=== PATIENT | male | born 1960 | race African-American/Black ===

== ENCOUNTER 2017-04-04 11:43 | Inpatient (IN) | payer OTHER ==
[2017-04-04 17:46] VITALS: BMI 19.5
--- NOTE | 2017-04-04 18:36 | HP ---
CIWA Score - CIWA Score Nausea/Vomitin-Mild Nausea/No Vomiting Muscle Tremors: 4-Moderate,w/Arms Extend Anxiety: 4-Mod. Anxious/Guarded Agitation: 4-Moderately Restless Paroxysmal Sweats: 1-Minimal Palms Moist Orientation: 3-Disoriented Date>2 days Tacttile Disturbances: 0-None Auditory Disturbances: 0-None Visual Disturbances: 0-None Headache: 0-None Present CIWA-Ar Total Score: 17 Admission ROS S - HPI Chief Complaint: WITHDRAWAL SX Allergies/Adverse Reactions: Allergies Allergy/AdvReac Type Severity Reaction Status Date / Time No Known Allergies Allergy Verified 03/17/16 13:32 History of Present Illness: 57 YEARS OLD MALE WITH LONG HISTORY OF ALCOHOL NICOTINE DEPENDENCE HAS HYPERLIPIDEMIA AND RASHES AND SCHIZOPHRENIA IS ADMITTED TO DETOX Exam Limitations: No Limitations - Ebola screening Have you traveled outside of the country in the last 21 days: No Have you had contact with anyone from an Ebola affected area: No Have you been sick,other than usual withdrawal symptoms: No Do you have a fever: No - Review of Systems Constitutional: Chills, Loss of Appetite, Changes in sleep, Unintentional Wgt. Loss, Unexplained wgt Loss EENT: reports: No Symptoms Reported Respiratory: reports: No Symptoms reported Cardiac: reports: No Symptoms Reported GI: reports: Nausea, Poor Appetite, Poor Fluid Intake, Abdominal cramping : reports: No Symptoms Reported Musculoskeletal: reports: No Symptoms Reported Integumentary: reports: Rash (TREATED AT SELLS DISCHARGED WITH ANTIBIOTIC) Neuro: reports: Tremors Endocrine: reports: No Symptoms Reported Hematology: reports: No Symptoms Reported Psychiatric: reports: Judgement Intact, Mood/Affect Appropiate, Anxious, Depressed Other Systems: Reviewed and Negative Patient History - Patient Medical History Hx Anemia: No Hx Asthma: No Hx Chronic Obstructive Pulmonary Disease (COPD): No Hx Cancer: No Hx Cardiac Disorders: No Hx Congestive Heart Failure: No Hx Hypertension: No Hx Hypercholesterolemia: No Hx Pacemaker: No HX Cerebrovascular Accident: No Hx Seizures: No Hx Dementia: No Hx Diabetes: No Hx Gastrointestinal Disorders: No Hx Liver Disease: No Hx Genitourinary Disorders: No Hx Sexually Transmitted Disorders: No Hx Renal Disease (ESRD): No Hx Thyroid Disease: No Hx Human Immunodeficiency Virus (HIV): No Hx Hepatitis C: No Hx Depression: No Hx Suicide Attempt: No Hx Bipolar Disorder: No Hx Schizophrenia: Yes - Patient Surgical History Past Surgical History: Yes Hx Neurologic Surgery: No Hx Cataract Extraction: No Hx Cardiac Surgery: No Hx Lung Surgery: No Hx Breast Surgery: No Hx Breast Biopsy: No Hx Abdominal Surgery: No Hx Appendectomy: No Hx Cholecystectomy: No Hx Genitourinary Surgery: No Hx Orthopedic Surgery: No Other Surgical History: KELOID RIGHT FACE Anesthesia Reaction: No - PPD History Previous Implant?: Yes Documented Results: Negative w/o proof Implanted On Prior [facility] Admission?: Yes Date: 03/19/16 Results: 0 mm PPD to be Administered?: Yes - Smoking Cessation Smoking history: Current every day smoker Have you smoked in the past 12 months: Yes Aproximately how many cigarettes per day: 2 Cigars Per Day: 0 Hx Chewing Tobacco Use: No Initiated information on smoking cessation: Yes 'Breaking Loose' booklet given: 04/04/17 - Substance & Tx. History Hx Alcohol Use: Yes Hx Substance Use: No Substance Use Type: Alcohol Hx Substance Use Treatment: Yes - Substances Abused Alcohol Route: Oral Frequency: Daily Amount used: Beer 32oz X5 Age of first use: 31 Date of Last Use: 04/04/17 Family Disease History - Family Disease History Family Disease History: Other: Father, Mother () Admission Physical Exam S - Vital Signs Vital Signs: Vital Signs - 24 hr 04/04/17 17:39 Temperature 96.1 F L Pulse Rate 92 H Respiratory 20 Rate Blood Pressure 158/94 - Physical General Appearance: Yes: Appropriately Dressed, Moderate Distress, Alcohol on Breath, Thin, Tremorous, Irritable, Sweating, Anxious HEENTM: Yes: Hearing grossly Normal, Normal ENT Inspection, Normocephalic, Normal Voice Respiratory: Yes: Chest Non-Tender, Lungs Clear, Normal Breath Sounds, No Respiratory Distress, No Accessory Muscle Use Neck: Yes: Supple, Trachea in good position Breast: Yes: Breasts Symetrical Cardiology: Yes: Regular Rhythm, S1, S2, Tachycardia Abdominal: Yes: Non Tender, Soft Genitourinary: Yes: Within Normal Limits Back: Yes: Normal Inspection Musculoskeletal: Yes: full range of Motion, Gait Steady Extremities: Yes: Normal Range of Motion, Non-Tender, Tremors, Other (RASHES TREATED AT SELLS) Neurological: Yes: Alert, Motor Strength 5/5, Normal Response, Depressed Affect Integumentary: Yes: Warm Lymphatic: Yes: Within Normal Limits - Diagnostic (1) Alcohol dependence with uncomplicated withdrawal Current Visit: Yes Status: Acute (2) Nicotine dependence Current Visit: Yes Status: Acute Qualifiers: Nicotine product type: cigarettes Substance use status: in withdrawal Qualified Code(s): F17.213 - Nicotine dependence, cigarettes, with withdrawal (3) Weight loss Current Visit: Yes Status: Acute (4) Schizotypal personality disorder Current Visit: Yes Status: Suspected (5) Acneiform rash Current Visit: Yes Status: Acute Comment: TREATED AT SELLS ORAL ANTIBIOTIC CORTISON CREAM Cleared for Admission [facility] - Detox or Rehab [facility] Level of Care: Medically Managed Detox Regimen/Protocol: Librium [facility] Breath Alcohol Content Breath Alcohol Content: 0.248 Urine Drug Screen - Results Drug Screen Negative: Yes
[2017-04-04] MEDS ORDERED: MAG HYDROX/AL HYDROX/SIMETH 30 ML UNIT-DOSE CUP PO PRN (19:13)
[2017-04-04] MEDS ORDERED: MAGNESIUM HYDROX 2400MG/30ML ORAL SUSPENSION 30 ML CUP PO PRN (19:13)
[2017-04-04] MEDS ORDERED: P-EPHED 60MG/TRIPROLIDI 2.5MG TABLET PO PRN (19:13)
[2017-04-04] MEDS ORDERED: guaiFENesin/D-METHORPHAN HB 10 ML UNIT-DOSE CUPS PO PRN (19:13)
[2017-04-04] MEDS ORDERED: chlordiazePOXIDE HCL 25 MG CAPSULE PO ONE (19:13)
[2017-04-04] MEDS ORDERED: hydrOXYzine PAMOATE 50 MG CAPSULE (FP) PO PRN (19:13)
[2017-04-04] MEDS ORDERED: LOPERAMIDE HCL 2 MG CAPSULE PO PRN (19:13)
[2017-04-04] MEDS ORDERED: NICOTINE POLACRILEX 2 MG GUM BUC PRN (19:13)
[2017-04-04] MEDS ORDERED: chlordiazePOXIDE HCL 25 MG CAPSULE PO PRN (19:13)
[2017-04-04] MEDS ORDERED: MENTHOL/PHENOL 1 EACH UD MM PRN (19:13)
[2017-04-04] MEDS ORDERED: IBUPROFEN 400 MG TABLET (FP) PO PRN (19:13)
[2017-04-04] MEDS ORDERED: ACETAMINOPHEN 325 MG TABLET (FP) PO PRN (19:13)
[2017-04-04] MEDS ORDERED: MAGNESIUM CITRATE 300 ML BOTTLE PO PRN (19:13)
[2017-04-04] MEDS: THIAMINE HCL 100 MG TABLET (FP) PO SCH (22:28)
[2017-04-04] MEDS: chlordiazePOXIDE HCL 25 MG CAPSULE PO SCH (22:29)
[2017-04-04] MEDS: CLOTRIMAZOLE 1% CREAM 15 GM TUBE TP SCH (22:29)
[2017-04-04] MEDS: diphenhydrAMINE HCL 50 MG CAPSULE PO PRN (22:30)
[2017-04-04] MEDS: CEPHALEXIN 250 MG/5 ML ORAL SUSPENSION PO SCH ×2 (22:51→23:43)
[2017-04-05] MEDS: chlordiazePOXIDE HCL 25 MG CAPSULE PO SCH ×4 (05:46→22:17)
[2017-04-05] MEDS: CEPHALEXIN MONOHYDRATE 250 MG CAPSULE (FP) PO SCH ×4 (05:46→23:22)
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
[2017-04-05 09:55] LABS: MCH 30.2 pg (25.7-33.7); MCHC 32.8 g/dl (32.0-35.9); MEAN PLT VOLUME 7.6 fl (7.5-11.1); PLATELET COUNT 279 K/MM3 (134-434); RDW 17.3 % (11.9-15.9); WHITE BLOOD COUNT 6.3 K/mm3 (4.0-10.0)
[2017-04-05] MEDS: PRENATAL VITAMINS W/ FOLIC ACID TABLET (FP) PO SCH (10:11)
[2017-04-05] MEDS: predniSONE 20 MG TABLET (UD) PO SCH (10:11)
[2017-04-05] MEDS: NICOTINE 14 MG/24 HOURS TOPICAL PATCH TD SCH (10:12)
[2017-04-05] MEDS ORDERED: HALOPERIDOL 1 MG TABLET (FP) PO PRN (10:27)
[2017-04-05 10:28] LABS: ALBUMIN 3.9 g/dl (3.4-5.0); ALK PHOS 114 U/L (45-117); ANION GAP 10 (8-16); BILIRUBIN,TOTAL 0.8 mg/dL (0.2-1.0); CALCIUM 8.9 mg/dL (8.5-10.1); CO2 29 mmol/L (21-32); CREATININE 0.8 mg/dL (0.7-1.3); GLUCOSE,RANDOM 102 mg/dL (74-106); SGOT/AST 39 U/L (15-37); SGPT/ALT 32 U/L (12-78); TOT PROT 7.2 g/dl (6.4-8.2)
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
[2017-04-05] MEDS: CLOTRIMAZOLE 1% CREAM 15 GM TUBE TP SCH ×2 (11:02→22:56)
[2017-04-05] MEDS ORDERED: PNEUMOC 13-VAL CONJ-DIP CRM/PF 0.5 ML DISP.SYRIN IM ONE (12:00)
[2017-04-05] MEDS ORDERED: PNEUMOCOCCAL 23 VACCINE 0.5 ML VIAL IM ONE (12:00)
--- NOTE | 2017-04-05 13:11 | EKG ---
Test Reason : Blood Pressure : / mmHG Vent. Rate : 074 BPM Atrial Rate : 074 BPM P-R Int : 166 ms QRS Dur : 086 ms QT Int : 372 ms P-R-T Axes : 081 085 072 degrees QTc Int : 412 ms NORMAL SINUS RHYTHM POSSIBLE LEFT ATRIAL ENLARGEMENT BORDERLINE ECG NO PREVIOUS ECGS AVAILABLE Confirmed by DOROTHEA JACKSON, CHIDI ([id number]) on 04/05/2017 1:11:13 PM Referred By: Confirmed By:CHIDI PIEDRA MD
[2017-04-05] MEDS: diphenhydrAMINE HCL 50 MG CAPSULE PO PRN (22:17)
[2017-04-05] MEDS: THIAMINE HCL 100 MG TABLET (FP) PO SCH (22:17)
[2017-04-05] MEDS: CEPHALEXIN 250 MG/5 ML ORAL SUSPENSION PO SCH (23:24)
[2017-04-06] MEDS: chlordiazePOXIDE HCL 25 MG CAPSULE PO SCH ×2 (05:48→10:18)
[2017-04-06] MEDS: CEPHALEXIN 250 MG/5 ML ORAL SUSPENSION PO SCH (05:49)
--- NOTE | 2017-04-06 09:53 | PN ---
[facility] CIWA - CIWA Score Nausea/Vomitin-No Nausea/No Vomiting Muscle Tremors: 4-Moderate,w/Arms Extend Anxiety: 5 Agitation: 3 Paroxysmal Sweats: 2 Orientation: 0-Oriented Tacttile Disturbances: 0-None Auditory Disturbances: 0-None Visual Disturbances: 0-None Headache: 0-None Present CIWA-Ar Total Score: 14 S Progress Note (SOAP) Subjective: ANXIETY,SWEATS,FATIGUE, SLIGHT TREMORS. Objective: 04/06/17 09:52 Vital Signs Temperature 97 F L 04/06/17 09:29 Pulse Rate 92 H 04/06/17 09:29 Respiratory Rate 20 04/06/17 09:29 Blood Pressure 143/96 04/06/17 09:29 O2 Sat by Pulse Oximetry (%) Laboratory Last Values WBC 6.3 K/mm3 (4.0-10.0) 04/05/17 06:00 RBC 4.94 M/mm3 (4.00-5.60) 04/05/17 06:00 Hgb 14.9 GM/dL (11.7-16.9) D 04/05/17 06:00 Hct 45.5 % (35.4-49) 04/05/17 06:00 MCV 92.0 fl (80-96) 04/05/17 06:00 MCHC 32.8 g/dl (32.0-35.9) 04/05/17 06:00 RDW 17.3 % (11.9-15.9) H D 04/05/17 06:00 Plt Count 279 K/MM3 (134-434) 04/05/17 06:00 MPV 7.6 fl (7.5-11.1) 04/05/17 06:00 Sodium 142 mmol/L (136-145) 04/05/17 06:00 Potassium 4.2 mmol/L (3.5-5.1) 04/05/17 06:00 Chloride 103 mmol/L (98-107) 04/05/17 06:00 Carbon Dioxide 29 mmol/L (21-32) 04/05/17 06:00 Anion Gap 10 (8-16) 04/05/17 06:00 BUN 18 mg/dL (7-18) 04/05/17 06:00 Creatinine 0.8 mg/dL (0.7-1.3) 04/05/17 06:00 Creat Clearance w eGFR > 60 (>60) 04/05/17 06:00 Random Glucose 102 mg/dL (74-106) D 04/05/17 06:00 Calcium 8.9 mg/dL (8.5-10.1) 04/05/17 06:00 Total Bilirubin 0.8 mg/dL (0.2-1.0) D 04/05/17 06:00 AST 39 U/L (15-37) H D 04/05/17 06:00 ALT 32 U/L (12-78) D 04/05/17 06:00 Alkaline Phosphatase 114 U/L (45-117) D 04/05/17 06:00 Total Protein 7.2 g/dl (6.4-8.2) D 04/05/17 06:00 Albumin 3.9 g/dl (3.4-5.0) 04/05/17 06:00 RPR Titer Nonreactive (NONREACTIVE) 04/05/17 06:00 Assessment: 04/06/17 09:52 WITHDRAWAL SX Plan: CONTINUE DETOX
[2017-04-06] MEDS: PRENATAL VITAMINS W/ FOLIC ACID TABLET (FP) PO SCH (10:18)
[2017-04-06] MEDS: CLOTRIMAZOLE 1% CREAM 15 GM TUBE TP SCH (10:18)
[2017-04-06] MEDS: predniSONE 20 MG TABLET (UD) PO SCH (10:18)
[2017-04-06] MEDS: NICOTINE 14 MG/24 HOURS TOPICAL PATCH TD SCH (10:18)
[2017-04-06 10:23] LABS: URINE APPEARANCE CLEAR; URINE BILIRUBIN NEGATIVE (NEGATIVE); URINE BLOOD NEGATIVE (NEGATIVE); URINE COLOR LTYELLOW; URINE GLUCOSE (UA) NEGATIVE (NEGATIVE); URINE KETONE NEGATIVE (NEGATIVE); URINE NITRITE NEGATIVE (NEGATIVE); URINE PROTEIN NEGATIVE (NEGATIVE); URINE UROBILINOGEN NEGATIVE E.U./dl (0.2-1.0)
[2017-04-06 10:48] LABS: URINE LEUK ESTERASE 1+ (NEGATIVE)
[2017-04-06 11:10] LABS: CALCIUM OXALATE CRYSTALS RARE /hpf (NONE SEEN); URINE MUCUS RARE; URINE RBC <1 /hpf (0-3); URINE WBC 9 /hpf (3-5)
[2017-04-06 13:33] VITALS: BP 136/95; PULSE 76; TEMP 96.3
--- NOTE | 2017-04-06 14:39 | DS ---
[facility] Detox Discharge Summary Admission Date: 04/04/17 Discharge Date: 04/06/17 - History Present History: Alcohol Dependence Additional Comments: PT DECLINED TO CONTINUE WITH DETOX FOR PERSONAL REASONS STATING TO HIS NURSE HE IS GOING TO ANOTHER FACILITY-[facility]. Pertinent Past History: SCHIZOPHRENIA - Physical Exam Results Vital Signs: Vital Signs Temperature 96.3 F L 04/06/17 13:32 Pulse Rate 76 04/06/17 13:32 Respiratory Rate 18 04/06/17 13:32 Blood Pressure 136/95 04/06/17 13:32 O2 Sat by Pulse Oximetry (%) Pertinent Admission Physical Exam Findings: WITHDRAWAL SX Laboratory Last Values WBC 6.3 K/mm3 (4.0-10.0) 04/05/17 06:00 RBC 4.94 M/mm3 (4.00-5.60) 04/05/17 06:00 Hgb 14.9 GM/dL (11.7-16.9) D 04/05/17 06:00 Hct 45.5 % (35.4-49) 04/05/17 06:00 MCV 92.0 fl (80-96) 04/05/17 06:00 MCHC 32.8 g/dl (32.0-35.9) 04/05/17 06:00 RDW 17.3 % (11.9-15.9) H D 04/05/17 06:00 Plt Count 279 K/MM3 (134-434) 04/05/17 06:00 MPV 7.6 fl (7.5-11.1) 04/05/17 06:00 Sodium 142 mmol/L (136-145) 04/05/17 06:00 Potassium 4.2 mmol/L (3.5-5.1) 04/05/17 06:00 Chloride 103 mmol/L (98-107) 04/05/17 06:00 Carbon Dioxide 29 mmol/L (21-32) 04/05/17 06:00 Anion Gap 10 (8-16) 04/05/17 06:00 BUN 18 mg/dL (7-18) 04/05/17 06:00 Creatinine 0.8 mg/dL (0.7-1.3) 04/05/17 06:00 Creat Clearance w eGFR > 60 (>60) 04/05/17 06:00 Random Glucose 102 mg/dL (74-106) D 04/05/17 06:00 Calcium 8.9 mg/dL (8.5-10.1) 04/05/17 06:00 Total Bilirubin 0.8 mg/dL (0.2-1.0) D 04/05/17 06:00 AST 39 U/L (15-37) H D 04/05/17 06:00 ALT 32 U/L (12-78) D 04/05/17 06:00 Alkaline Phosphatase 114 U/L (45-117) D 04/05/17 06:00 Total Protein 7.2 g/dl (6.4-8.2) D 04/05/17 06:00 Albumin 3.9 g/dl (3.4-5.0) 04/05/17 06:00 Urine Color Ltyellow 04/06/17 08:08 Urine Appearance Clear 04/06/17 08:08 Urine pH 6.0 (5.0-8.0) 04/06/17 08:08 Urine Protein Negative (NEGATIVE) 04/06/17 08:08 Urine Glucose (UA) Negative (NEGATIVE) 04/06/17 08:08 Urine Ketones Negative (NEGATIVE) 04/06/17 08:08 Urine Blood Negative (NEGATIVE) 04/06/17 08:08 Urine Nitrite Negative (NEGATIVE) 04/06/17 08:08 Urine Bilirubin Negative (NEGATIVE) 04/06/17 08:08 Urine Urobilinogen Negative E.U./dl (0.2-1.0) 04/06/17 08:08 Ur Leukocyte Esterase 1+ (NEGATIVE) H 04/06/17 08:08 Urine RBC <1 /hpf (0-3) 04/06/17 08:08 Urine WBC 9 /hpf (3-5) 04/06/17 08:08 Calcium Oxalate Crystal Rare /hpf (NONE SEEN) 04/06/17 08:08 Urine Mucus Rare 04/06/17 08:08 RPR Titer Nonreactive (NONREACTIVE) 04/05/17 06:00 - Treatment Hospital Course: Discharged Condition Good - Medication Discharge Medications: Ambulatory Orders Ondansetron HCl 4 mg PO TID MDD 3 10/24/16 - Diagnosis (1) Acneiform rash Status: Acute (2) Alcohol dependence with uncomplicated withdrawal Status: Acute (3) Nicotine dependence Status: Acute Qualifiers: Nicotine product type: cigarettes Substance use status: in withdrawal Qualified Code(s): F17.213 - Nicotine dependence, cigarettes, with withdrawal (4) Weight loss Status: Acute (5) Schizoaffective disorder Status: Suspected (6) Schizotypal personality disorder Status: Suspected - AMA Did Patient Leave Against Medical Advice: Yes (AMA)
[2017-04-06] MEDS ORDERED: chlordiazePOXIDE 5 MG CAPSULE PO SCH (23:00)
[2017-04-07] MEDS ORDERED: chlordiazePOXIDE HCL 10 MG CAPSULE PO SCH (23:00)
== END 2017-04-06 12:55 | disposition left against medical advice (07) | DRG 770 ==
LOC: YASAS 11:43 → Y3N 17:56
PROVIDERS: ADMIT Internal Medicine; ATTEND Internal Medicine
PROC: HZ2ZZZZ Detoxification Services for Substance Abuse Treatment (ICD-10-PCS; principal; 2017-04-04)
DX: F10.230 Alcohol dependence with withdrawal, uncomplicated (principal); F17.213 Nicotine dependence, cigarettes, with withdrawal; F25.9 Schizoaffective disorder, unspecified; F41.8 Other specified anxiety disorders; F22 Delusional disorders; F21 Schizotypal disorder; F60.0 Paranoid personality disorder; L27.0 Generalized skin eruption due to drugs and medicaments taken internally; R00.0 Tachycardia, unspecified; E78.5 Hyperlipidemia, unspecified; Z87.898 Personal history of other specified conditions
CPT/HCPCS: 36415; 80053; 81003; 81015; 85027; 86593; 90732; 93005; 93010; G0009

== ENCOUNTER 2017-12-24 08:41 | Inpatient (IN) | payer OTHER ==
[2017-12-24 10:27] VITALS: BMI 18.7
--- NOTE | 2017-12-24 11:34 | HP ---
CIWA Score - CIWA Score Nausea/Vomitin-Mild Nausea/No Vomiting Muscle Tremors: 4-Moderate,w/Arms Extend Anxiety: 3 Agitation: 3 Paroxysmal Sweats: 3 Orientation: 0-Oriented Tacttile Disturbances: 0-None Auditory Disturbances: 0-None Visual Disturbances: 0-None Headache: 0-None Present CIWA-Ar Total Score: 14 Admission ROS BHS - HPI Chief Complaint: I cant stop drinking alcohol. Allergies/Adverse Reactions: Allergies Allergy/AdvReac Type Severity Reaction Status Date / Time No Known Allergies Allergy Verified 12/24/17 11:02 History of Present Illness: pt is a 57yr old male with a history of alcohol dependence seeking detox for treatment. Exam Limitations: No Limitations - Ebola screening Have you traveled outside of the country in the last 21 days: No (N) Have you had contact with anyone from an Ebola affected area: No Have you been sick,other than usual withdrawal symptoms: No Do you have a fever: No - Review of Systems Constitutional: Chills, Changes in sleep EENT: reports: No Symptoms Reported Respiratory: reports: Cough Cardiac: reports: No Symptoms Reported GI: reports: Diarrhea, Poor Appetite, Poor Fluid Intake : reports: No Symptoms Reported Musculoskeletal: reports: Joint Pain, Other (left hip pain d/t arthritis) Integumentary: reports: Dryness, Flushing, Rash, Sweating Neuro: reports: Tingling, Tremors Endocrine: reports: Excessive Sweating, Flushing, Intolerance to Cold, Intolerance to Heat Hematology: reports: No Symptoms Reported Psychiatric: reports: Judgement Intact, Orientated x3, Agitated, Anxious, Depressed Other Systems: Reviewed and Negative Patient History - Patient Medical History Hx Anemia: No Hx Asthma: No Hx Chronic Obstructive Pulmonary Disease (COPD): No Hx Cancer: No Hx Cardiac Disorders: No Hx Congestive Heart Failure: No Hx Hypertension: No Hx Hypercholesterolemia: No Hx Pacemaker: No HX Cerebrovascular Accident: No Hx Seizures: No Hx Dementia: No Hx Diabetes: No Hx Gastrointestinal Disorders: No Hx Liver Disease: No Hx Genitourinary Disorders: No Hx Sexually Transmitted Disorders: No Hx Renal Disease (ESRD): No Hx Thyroid Disease: No Hx Human Immunodeficiency Virus (HIV): No (negative) Hx Hepatitis C: No (negative ) Hx Depression: No Hx Suicide Attempt: No (denies) Hx Bipolar Disorder: No Hx Schizophrenia: No - Patient Surgical History Past Surgical History: Yes Hx Neurologic Surgery: No Hx Cataract Extraction: No Hx Cardiac Surgery: No Hx Lung Surgery: No Hx Breast Surgery: No Hx Breast Biopsy: No Hx Abdominal Surgery: No Hx Appendectomy: No Hx Cholecystectomy: No Hx Genitourinary Surgery: No Hx Section: No Hx Orthopedic Surgery: No Other Surgical History: KELOID RIGHT FACE Anesthesia Reaction: No - PPD History Previous Implant?: Yes Documented Results: Negative w/proof Implanted On Prior [facility] Admission?: Yes Date: 04/06/17 Results: 0 mm PPD to be Administered?: No - Reproductive History Patient is a Female of Child Bearing Age (11 -55 yrs old): No - Smoking Cessation Smoking history: Former smoker Have you smoked in the past 12 months: No Aproximately how many cigarettes per day: 2 If you are a former smoker, when did you quit?: 2017 Cigars Per Day: 0 Hx Chewing Tobacco Use: No Initiated information on smoking cessation: No 'Breaking Loose' booklet given: 12/24/17 - Substance & Tx. History Hx Alcohol Use: Yes Hx Substance Use: No Substance Use Type: Alcohol Hx Substance Use Treatment: Yes (last detox [facility] 2months ago) - Substances Abused Alcohol Route: Oral Frequency: Daily Amount used: vodka(3 pints)/cobra(4-5 cans) Age of first use: 22 Date of Last Use: 12/24/17 Family Disease History - Family Disease History Family Disease History: Other: Father, Mother () Admission Physical Exam BHS - Vital Signs Vital Signs: Vital Signs - 24 hr 12/24/17 10:22 Temperature 97.0 F L Pulse Rate 86 Respiratory 18 Rate Blood Pressure 146/86 - Physical General Appearance: Yes: Appropriately Dressed, Moderate Distress, Severe Distress, Tremorous, Irritable, Sweating, Anxious HEENTM: Yes: Hearing grossly Normal, Normocephalic, Normal Voice, Pharynx Normal Respiratory: Yes: Lungs Clear, Normal Breath Sounds, No Respiratory Distress Neck: Yes: No masses,lesions,Nodules Breast: Yes: Within Normal Limits Cardiology: Yes: Within Normal Limits, Regular Rhythm, Regular Rate, S1, S2 Abdominal: Yes: Normal Bowel Sounds, Non Tender, Soft Genitourinary: Yes: Within Normal Limits Back: Yes: Normal Inspection Musculoskeletal: Yes: Back pain, Joint Stiffness Extremities: Yes: Normal Capillary Refill, Normal Inspection, Non-Tender, Tremors Neurological: Yes: Fully Oriented, Alert, Normal Response Integumentary: Yes: Dry Lymphatic: Yes: Within Normal Limits - Diagnostic (1) Alcohol dependence with uncomplicated withdrawal Current Visit: Yes Status: Chronic (2) Nicotine dependence Current Visit: Yes Status: Chronic Qualifiers: Nicotine product type: cigarettes Substance use status: uncomplicated Qualified Code(s): F17.210 - Nicotine dependence, cigarettes, uncomplicated (3) Acneiform rash Current Visit: Yes Status: Chronic (4) Cocaine abuse Current Visit: No Status: Acute (5) Schizoaffective disorder Current Visit: No Status: Suspected Cleared for Admission [facility] - Detox or Rehab [facility] Level of Care: Medically Managed Detox Regimen/Protocol: Librium [facility] Breath Alcohol Content Breath Alcohol Content: 196 Urine Drug Screen - Results Drug Screen Negative: No Urine Drug Screen Results: BZO-Benzodiazepines
[2017-12-24] MEDS ORDERED: LOPERAMIDE HCL 2 MG CAPSULE PO PRN (11:39)
[2017-12-24] MEDS ORDERED: MENTHOL/PHENOL 1 EACH UD MM PRN (11:39)
[2017-12-24] MEDS ORDERED: MAGNESIUM HYDROX 2400MG/30ML ORAL SUSPENSION 30 ML CUP PO PRN (11:39)
[2017-12-24] MEDS ORDERED: P-EPHED 60MG/TRIPROLIDI 2.5MG TABLET PO PRN (11:39)
[2017-12-24] MEDS ORDERED: MAG HYDROX/AL HYDROX/SIMETH 30 ML UNIT-DOSE CUP PO PRN (11:39)
[2017-12-24] MEDS ORDERED: ACETAMINOPHEN 325 MG TABLET (FP) PO PRN (11:39)
[2017-12-24] MEDS ORDERED: chlordiazePOXIDE HCL 25 MG CAPSULE PO PRN (11:39)
[2017-12-24] MEDS ORDERED: MAGNESIUM CITRATE 300 ML BOTTLE PO PRN (11:39)
[2017-12-24] MEDS ORDERED: chlordiazePOXIDE HCL 25 MG CAPSULE PO ONE (11:45)
[2017-12-24] MEDS: FLUOCINONIDE 0.05% CREAM (15 GM TUBE) TP SCH ×3 (15:34→22:10)
[2017-12-24 17:13] LABS: URINE APPEARANCE CLEAR; URINE BILIRUBIN NEGATIVE (NEGATIVE); URINE BLOOD NEGATIVE (NEGATIVE); URINE COLOR LTYELLOW; URINE GLUCOSE (UA) NEGATIVE (NEGATIVE); URINE KETONE NEGATIVE (NEGATIVE); URINE LEUK ESTERASE NEGATIVE (NEGATIVE); URINE NITRITE NEGATIVE (NEGATIVE); URINE PROTEIN NEGATIVE (NEGATIVE)
[2017-12-24] MEDS: chlordiazePOXIDE HCL 25 MG CAPSULE PO SCH ×2 (17:29→22:11)
[2017-12-24] MEDS: THIAMINE HCL 100 MG TABLET (FP) PO SCH (22:11)
[2017-12-24] MEDS: hydrOXYzine PAMOATE 50 MG CAPSULE (FP) PO PRN (22:12)
[2017-12-25] MEDS: chlordiazePOXIDE HCL 25 MG CAPSULE PO SCH ×4 (05:19→22:26)
[2017-12-25] MEDS ORDERED: PERMETHRIN 5% TOPICAL CREAM 60 GM TUBE TP ONE (09:13)
--- NOTE | 2017-12-25 09:29 | PN ---
[facility] CIWA - CIWA Score Nausea/Vomitin-No Nausea/No Vomiting Muscle Tremors: 4-Moderate,w/Arms Extend Anxiety: 4-Mod. Anxious/Guarded Agitation: 4-Moderately Restless Paroxysmal Sweats: 1-Minimal Palms Moist Orientation: 0-Oriented Tacttile Disturbances: 3-Moderate Itch/Numb/Burn Auditory Disturbances: 0-None Visual Disturbances: 0-None Headache: 0-None Present CIWA-Ar Total Score: 16 [facility] Progress Note (SOAP) Subjective: ANXIETY,SWEATS,IRRITABILITY,RESTLESS, IRRITABILITY,INTERMITTENT SLEEP. PT REPORTS LONG STANDING SKIN LESIONS WHICH HE HAS BEEN SEEING A APPLIANCE TECHNICIAN FOR TREATMENT. IN ADDITION, PT C/O OF UNRELENTING ITCHING AND SCRATCHING WHICH HE STATES HE MIGHT HAVE SCABIES. ASKED PT IF HE THINKS HE HAS BEEN RECENTLY EXPOSED AND PT SAYS YES AND DEMANDS TREATMENT. ON REVIEW OF PT'S HOME PHARMACY MEDS, PT WAS TREATED WITH PERMETHRIN 5% CREAM IN September,. PT STATES WAS GIVEN IVERMECTIN 3 MG TAB,RX DATE 12/14/17( INSTRUCTED TO TAKE 4 TABS ONE DOSE ON DAY ONE AND THEN 4 TABS ON DAY 8). PT IS NON COMPLIANT WITH TREATMENT AND REPORTS NOT STABLE AT A LOCATION. Objective: 12/25/17 11:22 Vital Signs Temperature 95.5 F L 12/25/17 09:47 Pulse Rate 87 12/25/17 09:47 Respiratory Rate 20 12/25/17 09:47 Blood Pressure 143/96 12/25/17 09:47 O2 Sat by Pulse Oximetry (%) Laboratory Last Values WBC 5.7 K/mm3 (4.0-10.0) 12/25/17 05:45 RBC 4.47 M/mm3 (4.00-5.60) 12/25/17 05:45 Hgb 13.8 GM/dL (11.7-16.9) 12/25/17 05:45 Hct 42.2 % (35.4-49) 12/25/17 05:45 MCV 94.5 fl (80-96) 12/25/17 05:45 MCH 30.9 pg (25.7-33.7) 12/25/17 05:45 MCHC 32.7 g/dl (32.0-35.9) 12/25/17 05:45 RDW 15.8 % (11.9-15.9) 12/25/17 05:45 Plt Count 263 K/MM3 (134-434) 12/25/17 05:45 MPV 7.8 fl (7.5-11.1) 12/25/17 05:45 Sodium 140 mmol/L (136-145) 12/25/17 05:45 Potassium 4.0 mmol/L (3.5-5.1) 12/25/17 05:45 Chloride 102 mmol/L (98-107) 12/25/17 05:45 Carbon Dioxide 30 mmol/L (21-32) 12/25/17 05:45 Anion Gap 8 (8-16) 12/25/17 05:45 BUN 17 mg/dL (7-18) 12/25/17 05:45 Creatinine 0.8 mg/dL (0.7-1.3) 12/25/17 05:45 Creat Clearance w eGFR > 60 (>60) 12/25/17 05:45 Random Glucose 65 mg/dL (74-106) L D 12/25/17 05:45 Calcium 8.8 mg/dL (8.5-10.1) 12/25/17 05:45 Total Bilirubin 0.5 mg/dL (0.2-1.0) D 12/25/17 05:45 AST 35 U/L (15-37) 12/25/17 05:45 ALT 30 U/L (12-78) 12/25/17 05:45 Alkaline Phosphatase 126 U/L (45-117) H 12/25/17 05:45 Total Protein 7.1 g/dl (6.4-8.2) 12/25/17 05:45 Albumin 3.8 g/dl (3.4-5.0) 12/25/17 05:45 Urine Color Ltyellow 12/24/17 15:00 Urine Appearance Clear 12/24/17 15:00 Urine pH 7.0 (5.0-8.0) 12/24/17 15:00 Ur Specific [place] 1.020 (1.001-1.035) 12/24/17 15:00 Urine Protein Negative (NEGATIVE) 12/24/17 15:00 Urine Glucose (UA) Negative (NEGATIVE) 12/24/17 15:00 Urine Ketones Negative (NEGATIVE) 12/24/17 15:00 Urine Blood Negative (NEGATIVE) 12/24/17 15:00 Urine Nitrite Negative (NEGATIVE) 12/24/17 15:00 Urine Bilirubin Negative (NEGATIVE) 12/24/17 15:00 Urine Urobilinogen 2.0 mg/dL (0.2-1.0) 12/24/17 15:00 Ur Leukocyte Esterase Negative (NEGATIVE) 12/24/17 15:00 Assessment: 12/25/17 11:22 WITHDRAWAL SX SCABIES Plan: CONTINUE DETOX PERMETHRIN 5% CREAM APPLY HEAD TO TOE TOPICALLY AND LEAVE FOR 8 HRS THEN WASH OFF.
[2017-12-25 09:50] LABS: HEMATOCRIT 42.2 % (35.4-49); HEMOGLOBIN 13.8 GM/dL (11.7-16.9); MCH 30.9 pg (25.7-33.7); MCHC 32.7 g/dl (32.0-35.9); MEAN CELL VOLUME 94.5 fl (80-96); MEAN PLT VOLUME 7.8 fl (7.5-11.1); PLATELET COUNT 263 K/MM3 (134-434); RBC 4.47 M/mm3 (4.00-5.60); RDW 15.8 % (11.9-15.9); WHITE BLOOD COUNT 5.7 K/mm3 (4.0-10.0)
[2017-12-25 10:42] LABS: CHLORIDE 102 mmol/L (98-107); SODIUM 140 mmol/L (136-145)
[2017-12-25] MEDS: FLUOCINONIDE 0.05% CREAM (15 GM TUBE) TP SCH ×4 (10:57→22:27)
[2017-12-25] MEDS: PRENATAL VITAMINS W/ FOLIC ACID TABLET (FP) PO SCH (10:57)
[2017-12-25 11:00] LABS: ALBUMIN 3.8 g/dl (3.4-5.0); ALK PHOS 126 U/L (45-117); ANION GAP 8 (8-16); BILIRUBIN,TOTAL 0.5 mg/dL (0.2-1.0); BLOOD UREA NITROGEN 17 mg/dL (7-18); CALCIUM 8.8 mg/dL (8.5-10.1); CO2 30 mmol/L (21-32); CREATININE 0.8 mg/dL (0.7-1.3); GLUCOSE,RANDOM 65 mg/dL (74-106); SGOT/AST 35 U/L (15-37); SGPT/ALT 30 U/L (12-78); TOT PROT 7.1 g/dl (6.4-8.2)
[2017-12-25] MEDS ORDERED: FLU VACCINE QUAD 60 MCG/0.5 ML (MDV 17-18) IM ONE (12:00)
--- NOTE | 2017-12-25 14:01 | EKG ---
Test Reason : Blood Pressure : / mmHG Vent. Rate : 099 BPM Atrial Rate : 099 BPM P-R Int : 142 ms QRS Dur : 080 ms QT Int : 328 ms P-R-T Axes : 077 084 070 degrees QTc Int : 420 ms NORMAL SINUS RHYTHM POSSIBLE LEFT ATRIAL ENLARGEMENT BORDERLINE ECG WHEN COMPARED WITH ECG OF 04-APR-2017 19:21, NO SIGNIFICANT CHANGE WAS FOUND Confirmed by MD Michaela, Stephen ([id number]) on 12/25/2017 2:00:51 PM Referred By: Confirmed By:Stephen Jennings MD
--- NOTE | 2017-12-25 19:00 | CONSULT ---
[facility] Psychiatric Consult - Data Date of interview: 12/25/17 Admission source: [facility] Identifying data: Readmission to [facility] for this 57 y/o AA male seeking detox treatment on for alcohol dependence.Patient is single without children,homeless,unemployed and supported on SSI benefits. Substance Abuse History: Confirmed by patient in this interview.Smoking history : Former smoker. Have you smoked in the past 12 months: No. Aproximately how many cigarettes per day: 2. If you are a former smoker, when did you quit?: 2017. Cigars Per Day: 0. Hx Chewing Tobacco Use: No. Initiated information on smoking cessation: No. 'Breaking Loose' booklet given: 12/24/17. - Substance & Tx. History. Hx Alcohol Use: Yes. Hx Substance Use: No. Substance Use Type: Alcohol. Hx Substance Use Treatment: Yes (last detox [facility] ago). - Substances Abused. Alcohol. Route: Oral. Frequency: Daily. Amount used: vodka(3 pints)/cobra(4-5 cans). Age of first use: 22. Date of Last Use: 12/24/17 Medical History: Patient endorses good general health. Psychiatric History: Patient denies history of psychiatric illness.Not concordant with previous records as evidenced by this imported note of 10/25/16 (from this program writer) : " History of multiple psychiatric hospitalizations.Patient is known to various psychiatric facilities,including [facility].Diagnosed with schizophrenia paranoid type.Mr Voss reports total non compliance with medications.He indicates his affiliation with an outpatient program,[facility],in [facility]." Mr Voss,in this interview,denies contact with psychiatric OPD care providers and endorses total non-adherence to psychotropic medications.No reported history of suicide attempts. Physical/Sexual Abuse/Trauma History: Patient denies.Previous records indicate a history of incareceration (20 years sentence for homicide). Additional Comment: Urine Drug Screen Results: BZO-Benzodiazepines.Noted. Mental Status Exam - Mental Status Exam Alert and Oriented to: Time, Place, Person Cognitive Function: Grossly Intact Patient Appearance: Unkempt, Disheveled Mood: Hostile, Nervous, Withdrawn Affect: Normal Range Patient Behavior: Fatigued, Guarded Speech Pattern: Clear (non-spontaneous) Voice Loudness: Normal Thought Process: Goal Oriented Thought Disorder: Not Present Hallucinations: Denies Suicidal Ideation: Denies Homicidal Ideation: Denies Insight/Judgement: Poor Sleep: Well Appetite: Good Muscle strength/Tone: Normal Gait/Station: Other (not observed : patient supine through psychiatric interview ) Psychiatric Findings - Problem List ([place] 1, 2,3) (1) Alcohol dependence with uncomplicated withdrawal Current Visit: Yes Status: Acute (2) Nicotine dependence Current Visit: Yes Status: Acute Qualifiers: Nicotine product type: cigarettes Substance use status: in withdrawal Qualified Code(s): F17.213 - Nicotine dependence, cigarettes, with withdrawal (3) Substance induced mood disorder Current Visit: Yes Status: Acute - Initial Treatment Plan Initial Treatment Plan: Psychoeducation offered : patient not receptive.Records reviewed.Detoxification in progress.Observation.
[2017-12-25] MEDS: IBUPROFEN 400 MG TABLET (FP) PO PRN (19:41)
[2017-12-25] MEDS: THIAMINE HCL 100 MG TABLET (FP) PO SCH (22:25)
[2017-12-25] MEDS: hydrOXYzine PAMOATE 50 MG CAPSULE (FP) PO PRN (22:26)
[2017-12-26] MEDS: chlordiazePOXIDE HCL 25 MG CAPSULE PO SCH ×2 (06:02→10:24)
[2017-12-26] MEDS: IBUPROFEN 400 MG TABLET (FP) PO PRN (06:03)
[2017-12-26] MEDS: PRENATAL VITAMINS W/ FOLIC ACID TABLET (FP) PO SCH (10:23)
[2017-12-26] MEDS: FLUOCINONIDE 0.05% CREAM (15 GM TUBE) TP SCH ×5 (10:24→22:36)
[2017-12-26] MEDS: guaiFENesin/D-METHORPHAN HB 10 ML UNIT-DOSE CUPS PO PRN ×2 (10:25→19:53)
--- NOTE | 2017-12-26 11:01 | PN ---
[facility] CIWA - CIWA Score Nausea/Vomitin-No Nausea/No Vomiting Muscle Tremors: 4-Moderate,w/Arms Extend Anxiety: 4-Mod. Anxious/Guarded Agitation: 4-Moderately Restless Paroxysmal Sweats: 1-Minimal Palms Moist Orientation: 0-Oriented Tacttile Disturbances: 3-Moderate Itch/Numb/Burn Auditory Disturbances: 0-None Visual Disturbances: 0-None Headache: 0-None Present CIWA-Ar Total Score: 16 S Progress Note (SOAP) Subjective: ITCHINESS RESOLVED, SLIGHT ANXIETY,SWEATS,IRRITABILITY. PT REPORTS HE WAS ON CEPHALEXIN TREATMENT FOR SKIN CONDITION, HAS IT IN HIS PROPERTY IN [place] AND TOOK IT FOR 2 DAYS BEFORE COMING HERE. HOME PHARMACY RECORDS SHOWS CEPHALAXIN 500 MG PO Q6H FOR DATE 12/14/17. APPARENTLY, PT TOOK ONLY 3 PILLS OUT OF 28 PILLS WHEN COUNTED BY NURSE. Objective: 12/26/17 11:00 Vital Signs Temperature 97.3 F L 12/26/17 09:29 Pulse Rate 87 12/26/17 09:29 Respiratory Rate 20 12/26/17 09:29 Blood Pressure 139/88 12/26/17 09:29 O2 Sat by Pulse Oximetry (%) Laboratory Last Values WBC 5.7 K/mm3 (4.0-10.0) 12/25/17 05:45 RBC 4.47 M/mm3 (4.00-5.60) 12/25/17 05:45 Hgb 13.8 GM/dL (11.7-16.9) 12/25/17 05:45 Hct 42.2 % (35.4-49) 12/25/17 05:45 MCV 94.5 fl (80-96) 12/25/17 05:45 MCH 30.9 pg (25.7-33.7) 12/25/17 05:45 MCHC 32.7 g/dl (32.0-35.9) 12/25/17 05:45 RDW 15.8 % (11.9-15.9) 12/25/17 05:45 Plt Count 263 K/MM3 (134-434) 12/25/17 05:45 MPV 7.8 fl (7.5-11.1) 12/25/17 05:45 Sodium 140 mmol/L (136-145) 12/25/17 05:45 Potassium 4.0 mmol/L (3.5-5.1) 12/25/17 05:45 Chloride 102 mmol/L (98-107) 12/25/17 05:45 Carbon Dioxide 30 mmol/L (21-32) 12/25/17 05:45 Anion Gap 8 (8-16) 12/25/17 05:45 BUN 17 mg/dL (7-18) 12/25/17 05:45 Creatinine 0.8 mg/dL (0.7-1.3) 12/25/17 05:45 Creat Clearance w eGFR > 60 (>60) 12/25/17 05:45 Random Glucose 65 mg/dL (74-106) L D 12/25/17 05:45 Calcium 8.8 mg/dL (8.5-10.1) 12/25/17 05:45 Total Bilirubin 0.5 mg/dL (0.2-1.0) D 12/25/17 05:45 AST 35 U/L (15-37) 12/25/17 05:45 ALT 30 U/L (12-78) 12/25/17 05:45 Alkaline Phosphatase 126 U/L (45-117) H 12/25/17 05:45 Total Protein 7.1 g/dl (6.4-8.2) 12/25/17 05:45 Albumin 3.8 g/dl (3.4-5.0) 12/25/17 05:45 Urine Color Ltyellow 12/24/17 15:00 Urine Appearance Clear 12/24/17 15:00 Urine pH 7.0 (5.0-8.0) 12/24/17 15:00 Ur Specific [place] 1.020 (1.001-1.035) 12/24/17 15:00 Urine Protein Negative (NEGATIVE) 12/24/17 15:00 Urine Glucose (UA) Negative (NEGATIVE) 12/24/17 15:00 Urine Ketones Negative (NEGATIVE) 12/24/17 15:00 Urine Blood Negative (NEGATIVE) 12/24/17 15:00 Urine Nitrite Negative (NEGATIVE) 12/24/17 15:00 Urine Bilirubin Negative (NEGATIVE) 12/24/17 15:00 Urine Urobilinogen 2.0 mg/dL (0.2-1.0) 12/24/17 15:00 Ur Leukocyte Esterase Negative (NEGATIVE) 12/24/17 15:00 RPR Titer Nonreactive (NONREACTIVE) 12/25/17 05:45 Assessment: 12/26/17 11:00 WITHDRAWAL SX Plan: CONTINUE DETOX RESTART CEPHALEXIN 500 MG PO Q6H
[2017-12-26] MEDS ORDERED: CEPHALEXIN MONOHYDRATE PO SCH (14:00)
--- NOTE | 2017-12-26 17:14 | PN ---
S Progress Note Note: an order for Ivermectin 12mg x one dose ordered for tomorrow d/t his condition for scabies and or worms which pt failed to advised and consult during initial assessment. this dose was confirmed to be ordered by Dr. Cardona.
[2017-12-26] MEDS: chlordiazePOXIDE 5 MG CAPSULE PO SCH ×2 (17:43→22:17)
[2017-12-26] MEDS: CEPHALEXIN MONOHYDRATE PO SCH ×2 (17:43→23:17)
[2017-12-26] MEDS: THIAMINE HCL 100 MG TABLET (FP) PO SCH (22:17)
[2017-12-27] MEDS: chlordiazePOXIDE 5 MG CAPSULE PO SCH (05:51)
[2017-12-27] MEDS: CEPHALEXIN MONOHYDRATE PO SCH (05:52)
[2017-12-27 06:15] VITALS: BP 142/74; PULSE 83; TEMP 98.2
[2017-12-27] MEDS: IBUPROFEN 400 MG TABLET (FP) PO PRN (07:21)
[2017-12-27] MEDS: guaiFENesin/D-METHORPHAN HB 10 ML UNIT-DOSE CUPS PO PRN (07:22)
[2017-12-27] MEDS ORDERED: IVERMECTIN 3 MG PO SCH (10:00)
[2017-12-27] MEDS ORDERED: IVERMECTIN 3 MG TABLET PO ONE (10:00)
--- NOTE | 2017-12-27 13:38 | DS ---
[facility] Detox Discharge Summary Admission Date: 12/24/17 Discharge Date: 12/20/17 - History Present History: Alcohol Dependence Additional Comments: PT DECLINED TO COMPLETE DETOX FOR PERSONAL REASONS STATING "I JUST WANT TO LEAVE ". ALERT O X 3. NAD. DENIES S/H/I. REPORTS HE SEES DR SHUBHAM MURGUIA AT [address] [place] [address] [place], [place]. Pertinent Past History: SEE DX BELOW - Physical Exam Results Vital Signs: Vital Signs Temperature 98.2 F 12/27/17 06:14 Pulse Rate 83 12/27/17 06:14 Respiratory Rate 18 12/27/17 06:14 Blood Pressure 142/74 12/27/17 06:14 O2 Sat by Pulse Oximetry (%) Pertinent Admission Physical Exam Findings: WITHDRAWAL SX - Treatment Hospital Course: Discharged Condition Good - Medication Discharge Medications: Ambulatory Orders Ibuprofen [Motrin -] 600 mg PO TID 12/24/17 Ivermectin 3 mg PO DAILY 12/24/17 Cephalexin Monohydrate [Keflex -] 500 mg PO Q6H 12/26/17 - Diagnosis (1) Alcohol dependence with uncomplicated withdrawal Status: Acute (2) Nicotine dependence Status: Acute Qualifiers: Nicotine product type: cigarettes Substance use status: in withdrawal Qualified Code(s): F17.213 - Nicotine dependence, cigarettes, with withdrawal (3) Weight loss Status: Acute (4) Scabies Status: Acute (5) Dermatitis Status: Chronic - AMA Did Patient Leave Against Medical Advice: Yes (AMA)
[2017-12-27] MEDS ORDERED: chlordiazePOXIDE HCL 10 MG CAPSULE PO SCH (17:00)
== END 2017-12-27 08:50 | disposition left against medical advice (07) | DRG 770 ==
LOC: YASAS 08:41 → Y3N 11:23
PROVIDERS: ADMIT Internal Medicine; ATTEND Internal Medicine
PROC: HZ2ZZZZ Detoxification Services for Substance Abuse Treatment (ICD-10-PCS; principal; 2017-12-24)
DX: F10.230 Alcohol dependence with withdrawal, uncomplicated (principal); F14.10 Cocaine abuse, uncomplicated; F19.24 Other psychoactive substance dependence with psychoactive substance-induced mood disorder; B86 Scabies; L30.9 Dermatitis, unspecified; R63.4 Abnormal weight loss; Z68.1 Body mass index [BMI] 19.9 or less, adult
CPT/HCPCS: 36415; 80053; 81003; 85027; 86593; 90688; 93005; 93010

== ENCOUNTER 2018-12-06 19:39 | Inpatient (IN) | payer OTHER ==
[2018-12-06 21:26] VITALS: BMI 18.8
--- NOTE | 2018-12-06 23:41 | HP ---
<Evaristo Can - Last Filed: 12/07/18 00:09> CIWA Score Nausea/Vomitin-Mild Nausea/No Vomiting Muscle Tremors: 3 Anxiety: 4-Mod. Anxious/Guarded Agitation: 3 Paroxysmal Sweats: 3 Orientation: 0-Oriented Tacttile Disturbances: 0-None Auditory Disturbances: 0-None Visual Disturbances: 0-None Headache: 0-None Present CIWA-Ar Total Score: 14 - Admission Criteria [facility] Guidelines: Admission for Medically Managed Detox: Requires at least one of the followin. CIWA greater than 12 2. Seizures within the past 24 hours 3. Delirium tremens within the past 24 hours 4. Hallucinations within the past 24 hours 5. Acute intervention needed for co occurring medical disorder 6. Acute intervention needed for co occurring psychiatric disorder 7. Severe withdrawal that cannot be handled at a lower level of care (continued vomiting, continued diarrhea, abnormal vital signs) requiring intravenous medication and/or fluids 8. Patient presents the following: CIWA greater than 12, None of the above Admission Criteria Met: Admission criteria met Admission ROS [facility] Chief Complaint: c/o worsening withdrawal sx's. seeking detox txment Allergies/Adverse Reactions: Allergies Allergy/AdvReac Type Severity Reaction Status Date / Time No Known Allergies Allergy Verified 12/06/18 22:49 History of Present Illness: 58 Y.O. MALE WITH HX/O ALCOHOLISM HERE FOR DETOX. CLIENT IS KNOWN TO THIS PROGRAM LAST ADMISSION 12/2017. HE WAS REFERRED TODAY BY [facility]. PRESENTS WITH C/O WORSENING WITHDRAWAL SX'S CIWA 14. ISATU INITIALLY .098 NOW .010. LAST DRANK EARLIER TODAY. DENIES ANY SIGNIFICANT PERIOD OF CLEAN TIME. HE REPORTS HX/O OA , HX/O DEPRESSION WITH REPORTED RECENT HOSPITALIZATION 1 MONTH AGO. DENIES SI/HI , AVH, SEIZURE D/O. REPORTS HE IS IN THE [facility] [facility], UNEMPLOYED, DENIES LEGALS. Exam Limitations: Physical Impairment (AMBULATES WITH CANE) - Ebola screening Have you traveled outside of the country in the last 21 days: No (N) Have you had contact with anyone from an Ebola affected area: No Have you been sick,other than usual withdrawal symptoms: No Do you have a fever: No - Review of Systems Constitutional: Chills, Loss of Appetite, Malaise (CHRONIC), Night Sweats, Changes in sleep EENT: reports: Dental Problems (DENTAL CARIES) Respiratory: reports: No Symptoms reported Cardiac: reports: No Symptoms Reported GI: reports: Nausea, Poor Appetite, Poor Fluid Intake : reports: No Symptoms Reported Musculoskeletal: reports: Joint Pain (LEFT HIP/ CHRONIC) Integumentary: reports: Dryness, Pruritus, Sweating Neuro: reports: Tremors Endocrine: reports: No Symptoms Reported Hematology: reports: No Symptoms Reported Psychiatric: reports: Orientated x3, Anxious, Depressed Other Systems: Reviewed and Negative Patient History - Patient Medical History Hx Anemia: No Hx Asthma: No Hx Chronic Obstructive Pulmonary Disease (COPD): No Hx Cancer: No Hx Cardiac Disorders: No Hx Congestive Heart Failure: No Hx Hypertension: No Hx Hypercholesterolemia: No Hx Pacemaker: No HX Cerebrovascular Accident: No Hx Seizures: No Hx Dementia: No Hx Diabetes: No Hx Gastrointestinal Disorders: No Hx Liver Disease: No Hx Genitourinary Disorders: No Hx Sexually Transmitted Disorders: No Hx Renal Disease (ESRD): No Hx Thyroid Disease: No Hx Human Immunodeficiency Virus (HIV): No Hx Hepatitis C: No Hx Depression: Yes Hx Suicide Attempt: No Hx Bipolar Disorder: No Hx Schizophrenia: No Other Medical History: OA - Patient Surgical History Past Surgical History: Yes Hx Neurologic Surgery: No Hx Cataract Extraction: No Hx Cardiac Surgery: No Hx Lung Surgery: No Hx Breast Surgery: No Hx Breast Biopsy: No Hx Abdominal Surgery: No Hx Appendectomy: No Hx Cholecystectomy: No Hx Genitourinary Surgery: No Hx Section: No Hx Orthopedic Surgery: No Other Surgical History: KELOID RIGHT FACE Anesthesia Reaction: No - PPD History Previous Implant?: Yes Documented Results: Negative w/proof Implanted On Prior [facility] Admission?: Yes Date: 04/06/17 Results: 0 mm PPD to be Administered?: No - Smoking Cessation Smoking history: Current some day smoker Have you smoked in the past 12 months: Yes Aproximately how many cigarettes per day: 3 Cigars Per Day: 0 Hx Chewing Tobacco Use: No Initiated information on smoking cessation: Yes 'Breaking Loose' booklet given: 12/06/18 - Substance & Tx. History Hx Alcohol Use: Yes Hx Substance Use: Yes Substance Use Type: Alcohol Hx Substance Use Treatment: Yes ([facility]) - Substances Abused Alcohol Route: Oral Frequency: 3-6 times per week Amount used: 1 PINT [place]ODKA Age of first use: 23 Date of Last Use: 12/06/18 Family Disease History - Family Disease History Family Disease History: Other: Father, Mother () Admission Physical Exam [facility] - Vital Signs Vital Signs: Vital Signs - 24 hr 12/06/18 21:24 Temperature 98.0 F Pulse Rate 107 H Respiratory 18 Rate Blood Pressure 150/82 - Physical General Appearance: Yes: Mild Distress, Tremorous, Sweating, Anxious, Other ( MALODUROUS) HEENTM: Yes: EOMI, Normocephalic, Normal Voice, MELINDA, Pharynx Normal Respiratory: Yes: Chest Non-Tender, Lungs Clear, Normal Breath Sounds, No Respiratory Distress, No Accessory Muscle Use Neck: Yes: No masses,lesions,Nodules, Supple, Trachea in good position Breast: Yes: Breast Exam Deferred Cardiology: Yes: Regular Rhythm, S1, S2, Tachycardia Abdominal: Yes: Normal Bowel Sounds, Non Tender, Flat, Soft Genitourinary: Yes: Other (NO C/O) Back: Yes: Normal Inspection Musculoskeletal: Yes: Other (UNSTEADY GAIT AMBUALTES WITH CANE) Extremities: Yes: Normal Range of Motion, Non-Tender, Tremors Neurological: Yes: Fully Oriented, Alert, Depressed Affect Integumentary: Yes: Dry, Warm, Rash, Other (DERMATOSIS WITH HYPERPIGMENTATION OF SKIN TO CHEST WALL AND BACK ASSOCIATED WITH PRURITIS) Lymphatic: Yes: Within Normal Limits - Diagnostic (1) Dermatosis Current Visit: Yes Status: Chronic (2) Osteoarthritis Current Visit: Yes Status: Chronic Qualifiers: Osteoarthritis location: hip Laterality: left (3) Alcohol dependence with uncomplicated withdrawal Current Visit: Yes Status: Acute (4) Nicotine dependence Current Visit: Yes Status: Chronic Qualifiers: Nicotine product type: cigarettes Substance use status: in withdrawal Qualified Code(s): F17.213 - Nicotine dependence, cigarettes, with withdrawal (5) Dry skin Current Visit: Yes Status: Chronic Cleared for Admission [facility] - Detox or Rehab [facility] Level of Care: Medically Managed Detox Regimen/Protocol: Librium Claeared for Rehab Admission: No [facility] Breath Alcohol Content Breath Alcohol Content: 0.098 Urine Drug Screen - Results Drug Screen Negative: No Urine Drug Screen Results: BZO-Benzodiazepines <Pretty Ulloa - Last Filed: 12/08/18 17:23> CIWA Score - Admission Criteria [facility] Guidelines: Admission for Medically Managed Detox: Requires at least one of the followin. CIWA greater than 12 2. Seizures within the past 24 hours 3. Delirium tremens within the past 24 hours 4. Hallucinations within the past 24 hours 5. Acute intervention needed for co occurring medical disorder 6. Acute intervention needed for co occurring psychiatric disorder 7. Severe withdrawal that cannot be handled at a lower level of care (continued vomiting, continued diarrhea, abnormal vital signs) requiring intravenous medication and/or fluids 8. Admission Physical Exam S - Vital Signs Vital Signs: Vital Signs - 24 hr 12/07/18 12/07/18 12/08/18 17:16 21:49 00:30 Temperature 98.4 F 98.1 F Pulse Rate 80 86 Respiratory 19 20 18 Rate Blood Pressure 122/83 110/69 12/08/18 12/08/18 12/08/18 03:30 06:00 10:20 Temperature 97.7 F 97.5 F L Pulse Rate 70 87 Respiratory 18 16 18 Rate Blood Pressure 110/83 111/57 L 12/08/18 14:33 Temperature 98.0 F Pulse Rate 96 H Respiratory 18 Rate Blood Pressure 119/87
[2018-12-07] MEDS ORDERED: ACETAMINOPHEN 325 MG TABLET (FP) PO PRN
[2018-12-07] MEDS ORDERED: chlordiazePOXIDE HCL 25 MG CAPSULE PO PRN
[2018-12-07] MEDS ORDERED: NICOTINE POLACRILEX 2 MG GUM BC PRN
[2018-12-07] MEDS ORDERED: hydrOXYzine PAMOATE 50 MG CAPSULE (FP) PO PRN
[2018-12-07] MEDS ORDERED: MAGNESIUM HYDROX 2400MG/30ML ORAL SUSPENSION 30 ML CUP PO PRN
[2018-12-07] MEDS ORDERED: MAG HYDROX/AL HYDROX/SIMETH 30 ML UNIT-DOSE CUP PO PRN
[2018-12-07] MEDS ORDERED: IBUPROFEN 400 MG TABLET (FP) PO PRN
[2018-12-07] MEDS ORDERED: P-EPHED 60MG/TRIPROLIDI 2.5MG TABLET PO PRN
[2018-12-07] MEDS ORDERED: LOPERAMIDE HCL 2 MG CAPSULE PO PRN
[2018-12-07] MEDS ORDERED: MAGNESIUM CITRATE 300 ML BOTTLE PO PRN
[2018-12-07] MEDS ORDERED: MENTHOL/PHENOL 1 EACH UD MM PRN
[2018-12-07] MEDS ORDERED: guaiFENesin/D-METHORPHAN HB 10 ML UNIT-DOSE CUPS PO PRN
[2018-12-07] MEDS: chlordiazePOXIDE HCL 25 MG CAPSULE PO SCH ×4 (05:23→22:52)
[2018-12-07] MEDS: PRENATAL VITAMINS W/ FOLIC ACID TABLET (FP) PO SCH (10:24)
[2018-12-07] MEDS: NICOTINE 14 MG/24 HOURS TOPICAL PATCH TD SCH (10:25)
[2018-12-07 11:22] LABS: URINE APPEARANCE CLEAR; URINE BILIRUBIN NEGATIVE (<2.0 mg/dL); URINE COLOR LTYELLOW; URINE GLUCOSE (UA) NEGATIVE (NEGATIVE); URINE KETONE NEGATIVE (NEGATIVE); URINE LEUK ESTERASE NEGATIVE (NEGATIVE); URINE NITRITE NEGATIVE (NEGATIVE); URINE PROTEIN NEGATIVE (NEGATIVE); URINE UROBILINOGEN NEGATIVE mg/dL (0.2-1.0)
[2018-12-07] MEDS: TRIAMCINOLONE ACET 0.1% OINT 15 GM TUBE TP SCH ×2 (13:23→22:52)
--- NOTE | 2018-12-07 13:42 | PN ---
S CIWA - CIWA Score Nausea/Vomitin Muscle Tremors: 2 Anxiety: 2 Agitation: 2 Paroxysmal Sweats: 2 Orientation: 0-Oriented Tacttile Disturbances: 2-Mild Itch/Numbness/Burn Auditory Disturbances: 0-None Visual Disturbances: 0-None Headache: 2-Mild CIWA-Ar Total Score: 14 S Progress Note (SOAP) Subjective: Interrupted sleep, tremors, anxiety and muscle ache Objective: 12/07/18 13:41 Vital Signs 12/07/18 12/07/18 12/07/18 06:00 06:24 09:48 Temperature 97.7 F 98.2 F Pulse Rate 85 80 Respiratory 16 18 18 Rate Blood Pressure 123/84 119/82 Laboratory Last Values Urine Color Ltyellow 12/07/18 07:50 Urine Appearance Clear 12/07/18 07:50 Urine pH 6.0 (5.0-8.0) 12/07/18 07:50 Ur Specific [place] 1.023 (1.010-1.035) 12/07/18 07:50 Urine Protein Negative (NEGATIVE) 12/07/18 07:50 Urine Glucose (UA) Negative (NEGATIVE) 12/07/18 07:50 Urine Ketones Negative (NEGATIVE) 12/07/18 07:50 Urine Blood Negative (NEGATIVE) 12/07/18 07:50 Urine Nitrite Negative (NEGATIVE) 12/07/18 07:50 Urine Bilirubin Negative (<2.0 mg/dL) 12/07/18 07:50 Urine Urobilinogen Negative mg/dL (0.2-1.0) 12/07/18 07:50 Ur Leukocyte Esterase Negative (NEGATIVE) 12/07/18 07:50 UA noted Labs pending Assessment: 12/07/18 13:42 Withdrawal sx Plan: Continue detox
--- NOTE | 2018-12-07 14:30 | CONSULT ---
[facility] Psychiatric Consult - Data Date of interview: 12/07/18 Admission source: [facility] Identifying data: Patient is approached at bedside for psychiatric evaluation. Mr Bipin solares.
[2018-12-07] MEDS ORDERED: MELATONIN 5 MG TABLETS PO PRN (22:00)
[2018-12-07] MEDS ORDERED: THIAMINE HCL 100 MG TABLET (FP) PO SCH (22:00)
[2018-12-08] MEDS: chlordiazePOXIDE HCL 25 MG CAPSULE PO SCH ×2 (05:11→10:54)
[2018-12-08] MEDS: PRENATAL VITAMINS W/ FOLIC ACID TABLET (FP) PO SCH (10:54)
[2018-12-08] MEDS: TRIAMCINOLONE ACET 0.1% OINT 15 GM TUBE TP SCH (10:55)
[2018-12-08] MEDS: NICOTINE 14 MG/24 HOURS TOPICAL PATCH TD SCH (10:55)
[2018-12-08] MEDS ORDERED: NAPROXEN 500 MG TABLET (FP) PO SCH (11:15)
[2018-12-08 11:25] LABS: HEMATOCRIT 40.3 % (35.4-49); HEMOGLOBIN 13.7 GM/dL (11.7-16.9); MCH 30.4 pg (25.7-33.7); MCHC 34.1 g/dl (32.0-35.9); MEAN CELL VOLUME 89.2 fl (80-96); MEAN PLT VOLUME 7.5 fl (7.5-11.1); PLATELET COUNT 232 K/MM3 (134-434); RBC 4.52 M/mm3 (4.00-5.60); WHITE BLOOD COUNT 6.1 K/mm3 (4.0-10.0)
[2018-12-08 11:32] LABS: ALBUMIN 3.4 g/dl (3.4-5.0); ALK PHOS 87 U/L (45-117); ANION GAP 4 MMOL/L (8-16); BILIRUBIN,TOTAL 0.6 mg/dL (0.2-1); BLOOD UREA NITROGEN 23 mg/dL (7-18); CALCIUM 8.7 mg/dL (8.5-10.1); CHLORIDE 104 mmol/L (98-107); CO2 32 mmol/L (21-32); CREATININE 0.7 mg/dL (0.55-1.3); GLUCOSE,RANDOM 77 mg/dL (74-106); SGOT/AST 21 U/L (15-37); SGPT/ALT 31 U/L (13-61); SODIUM 139 mmol/L (136-145); TOT PROT 6.4 g/dl (6.4-8.2)
--- NOTE | 2018-12-08 17:24 | PN ---
[facility] CIWA - CIWA Score Nausea/Vomitin-Mild Nausea/No Vomiting Muscle Tremors: 3 Anxiety: 3 Agitation: 3 Paroxysmal Sweats: 3 Orientation: 0-Oriented Tacttile Disturbances: 0-None Auditory Disturbances: 0-None Visual Disturbances: 0-None Headache: 1-Very Mild CIWA-Ar Total Score: 14 [facility] Progress Note (SOAP) Subjective: Anxious, restless; c/o pain in knees and hips from OA and requesting to resume naproxen which he takes at home. Objective: 12/08/18 17:22 Last Vital Signs Temp Pulse Resp BP Pulse Ox 98.0 F 96 H 18 119/87 12/08/18 14:33 12/08/18 14:33 12/08/18 14:33 12/08/18 14:33 Laboratory Tests 12/07/18 12/08/18 12/08/18 07:50 07:20 07:20 WBC 6.1 RBC 4.52 Hgb 13.7 Hct 40.3 MCV 89.2 MCH 30.4 MCHC 34.1 RDW 17.0 H Plt Count 232 MPV 7.5 Sodium 139 Potassium 4.0 Chloride 104 Carbon Dioxide 32 Anion Gap 4 L BUN 23 H Creatinine 0.7 Creat Clearance w eGFR > 60 Random Glucose 77 Calcium 8.7 Total Bilirubin 0.6 AST 21 ALT 31 Alkaline Phosphatase 87 Total Protein 6.4 Albumin 3.4 Urine Color Ltyellow Urine Appearance Clear Urine pH 6.0 Ur Specific [place] 1.023 Urine Protein Negative Urine Glucose (UA) Negative Urine Ketones Negative Urine Blood Negative Urine Nitrite Negative Urine Bilirubin Negative Urine Urobilinogen Negative Ur Leukocyte Esterase Negative RPR Titer 12/08/18 07:20 WBC RBC Hgb Hct MCV MCH MCHC RDW Plt Count MPV Sodium Potassium Chloride Carbon Dioxide Anion Gap BUN Creatinine Creat Clearance w eGFR Random Glucose Calcium Total Bilirubin AST ALT Alkaline Phosphatase Total Protein Albumin Urine Color Urine Appearance Urine pH Ur Specific [place] Urine Protein Urine Glucose (UA) Urine Ketones Urine Blood Urine Nitrite Urine Bilirubin Urine Urobilinogen Ur Leukocyte Esterase RPR Titer Nonreactive Labs reviewed: bun 23 Assessment: 12/08/18 17:22 Withdrawal symptoms Noted with azotemia Plan: Continue detox Azotemia: encouraged PO water hydration OA: resume naproxen 500mg PO bid (give with food or milk to prevent stomach irritation), d/c motrin
[2018-12-08 17:38] VITALS: BP 140/60; PULSE 86; TEMP 96.3
[2018-12-09] MEDS ORDERED: chlordiazePOXIDE 5 MG CAPSULE PO SCH (05:00)
[2018-12-10] MEDS ORDERED: chlordiazePOXIDE HCL 10 MG CAPSULE PO SCH (05:00)
== END 2018-12-08 17:12 | disposition left against medical advice (07) | DRG 770 ==
LOC: YASAS 19:39 → Y6N 23:26
PROVIDERS: ADMIT Neuromusculoskeletal Medicine & OMM; ATTEND Neuromusculoskeletal Medicine & OMM
PROC: HZ2ZZZZ Detoxification Services for Substance Abuse Treatment (ICD-10-PCS; principal; 2018-12-06)
DX: F10.230 Alcohol dependence with withdrawal, uncomplicated (principal); F17.210 Nicotine dependence, cigarettes, uncomplicated; F19.24 Other psychoactive substance dependence with psychoactive substance-induced mood disorder; F41.9 Anxiety disorder, unspecified; F32.9 Major depressive disorder, single episode, unspecified; R79.89 Other specified abnormal findings of blood chemistry; M16.12 Unilateral primary osteoarthritis, left hip; R00.0 Tachycardia, unspecified; L98.8 Other specified disorders of the skin and subcutaneous tissue
CPT/HCPCS: 36415; 80053; 81003; 85027; 86593

== ENCOUNTER 2019-03-03 23:12 | Emergency (ER) | payer OTHER ==
[2019-03-04 00:08] VITALS: BMI 26.4
--- NOTE | 2019-03-04 00:27 | PDOC ---
History of Present Illness - General Chief Complaint: Substance Abuse Stated Complaint: INTOX Time Seen by Provider: 03/04/19 00:27 History Source: Patient - History of Present Illness Initial Comments: 03/04/19 00:52 59-year-old male brought in by ambulance from [facility] for intoxication. Patient is slurring of speech response to verbal stimuli. No visual trauma noted normocephalic. 0 Past History - Past Medical History Allergies/Adverse Reactions: Allergies Allergy/AdvReac Type Severity Reaction Status Date / Time No Known Allergies Allergy Verified 03/04/19 00:08 Home Medications: Ambulatory Orders Unobtainable 03/04/19 Anemia: No Asthma: No Cancer: No Cardiac Disorders: No CVA: No COPD: No CHF: No Dementia: No Diabetes: No GI Disorders: No Disorders: No HTN: No Hypercholesterolemia: No Kidney Stones: No Liver Disease: No Seizures: No Thyroid Disease: No - Surgical History Abdominal Surgery: No Appendectomy: No Cardiac Surgery: No Cholecystectomy: No Lung Surgery: No Neurologic Surgery: No Orthopedic Surgery: No - Reproductive History Testicular Surgery: No - Suicide/Smoking/Psychosocial Hx Smoking History: Unknown if ever smoked Have you smoked in the past 12 months: No Number of Cigarettes Smoked Daily: 3 If you are a former smoker, when did you quit?: 2017 Cigars Per Day: 0 Information on smoking cessation initiated: No 'Breaking Loose' booklet given: 12/06/18 Hx Alcohol Use: Yes Drug/Substance Use Hx: No Substance Use Type: Alcohol Hx Substance Use Treatment: Yes ([facility]) Review of Systems - Review of Systems Able to Perform ROS?: Yes Is the patient limited Albanian proficient: No Constitutional: No: Symptoms Reported, See HPI, Chills, Diaphoresis, Fever, Loss of Appetite, Malaise, Night Sweats, Weakness, Weight Stable, Unintentional Wgt. Loss, Unexplained wgt Loss, Other Psychiatric: Yes: Other (intoxication/substance abuse) *Physical Exam - Vital Signs Last Vital Signs Temp Pulse Resp BP Pulse Ox 96.7 F L 86 19 102/70 97 03/03/19 23:15 03/03/19 23:15 03/03/19 23:15 03/03/19 23:15 03/03/19 23:15 - Physical Exam General Appearance: Yes: Appropriately Dressed HEENT: positive: Other (normocephalic) Respiratory/Chest: positive: Lungs Clear, Normal Breath Sounds Integumentary: positive: Normal Color, Dry (dry skin) Neurologic: positive: Alert (+ slurred speech . resposive to verbal stimuli) ED Treatment Course - LABORATORY CBC & Chemistry Diagram: 03/04/19 01:13 03/04/19 01:13 Medical Decision Making - Medical Decision Making A" alcohol intoxication P: labs CT head: negative urine tox 03/04/19 02:24 03/04/19 06:25 patient is alert awake. no slurred speech. would like detox. will d/c back to [facility] 03/04/19 06:49 *DC/Admit/Observation/Transfer Diagnosis at time of Disposition: Alcohol intoxication Qualifiers: Complication of substance-induced condition: uncomplicated Qualified Code(s): F10.920 - Alcohol use, unspecified with intoxication, uncomplicated - Discharge Dispostion Disposition: HOME Condition at time of disposition: Fair - Referrals - Patient Instructions Printed Discharge Instructions: DI for Alcohol Abuse Additional Instructions: refrain from using alcohol. - Post Discharge Activity
--- NOTE | 2019-03-04 00:28 | PDOC ---
*Physical Exam - Vital Signs Last Vital Signs Temp Pulse Resp BP Pulse Ox 96.7 F L 86 19 102/70 97 03/03/19 23:15 03/03/19 23:15 03/03/19 23:15 03/03/19 23:15 03/03/19 23:15 ED Treatment Course - LABORATORY CBC & Chemistry Diagram: 03/04/19 01:13 03/04/19 01:13 Medical Decision Making - Medical Decision Making 03/04/19 00:28 Patient seen by the advanced practice provider under my direct supervision. Ancillary testing reviewed as necessary. I agree with plan as outlined by the advanced practice provider. *DC/Admit/Observation/Transfer Diagnosis at time of Disposition: Alcohol intoxication Qualifiers: Complication of substance-induced condition: uncomplicated Qualified Code(s): F10.920 - Alcohol use, unspecified with intoxication, uncomplicated - Discharge Dispostion Condition at time of disposition: Fair - Referrals - Patient Instructions - Post Discharge Activity
[2019-03-04 01:22] LABS: BASO % 1.3 % (0-2.0); EOS % 7.5 % (0-4.5); HEMATOCRIT 36.9 % (35.4-49); HEMOGLOBIN 12.4 GM/dL (11.7-16.9); LYMPH % 31.4 % (8-40); MCHC 33.5 g/dl (32.0-35.9); MEAN CELL VOLUME 95.4 fl (80-96); MEAN PLT VOLUME 7.1 fl (7.5-11.1); MONO % 10.1 % (3.8-10.2); NEUT % 49.7 % (42.8-82.8); PLATELET COUNT 238 K/MM3 (134-434); RBC 3.86 M/mm3 (4.00-5.60)
[2019-03-04 01:37] LABS: INR 0.91 (0.83-1.09); PROTHROMBIN TIME (PATIENT) 10.7 SEC (9.7-13.0)
[2019-03-04 01:47] LABS: ALBUMIN 3.2 g/dl (3.4-5.0); ALK PHOS 114 U/L (45-117); ANION GAP 9 MMOL/L (8-16); BILIRUBIN,TOTAL 0.4 mg/dL (0.2-1); BLOOD UREA NITROGEN 26 mg/dL (7-18); CALCIUM 8.6 mg/dL (8.5-10.1); CHLORIDE 109 mmol/L (98-107); CO2 27 mmol/L (21-32); CREATININE 0.9 mg/dL (0.55-1.3); GLUCOSE,RANDOM 95 mg/dL (74-106); POTASSIUM 3.8 mmol/L (3.5-5.1); SGOT/AST 24 U/L (15-37); SGPT/ALT 27 U/L (13-61); SODIUM 145 mmol/L (136-145); TOT PROT 6.1 g/dl (6.4-8.2)
[2019-03-04 06:55] VITALS: BP 128/87; PULSE 83; TEMP 98.4
== END 2019-03-04 08:41 | disposition home or self-care (01) ==
LOC: JER 23:12
DX: F10.929 Alcohol use, unspecified with intoxication, unspecified (principal)
CPT/HCPCS: 36415; 70450-TC; 80053; 80307; 82962; 85025; 85610; 99282-25

== ENCOUNTER 2019-03-04 10:45 | Inpatient (IN) | payer OTHER ==
[2019-03-04 11:35] VITALS: BMI 19.8
--- NOTE | 2019-03-04 12:48 | HP ---
CIWA Score Nausea/Vomitin Muscle Tremors: 2 Anxiety: 1-Mildly Anxious Agitation: 0-Normal Activity Paroxysmal Sweats: 2 Orientation: 1-Uncertain about Date Tacttile Disturbances: 1-Very Mild Itch/Numbness Auditory Disturbances: 0-None Visual Disturbances: 0-None Headache: 4-Moderately Severe CIWA-Ar Total Score: 14 - Admission Criteria OASAS Guidelines: Admission for Medically Managed Detox: Requires at least one of the followin. CIWA greater than 12 2. Seizures within the past 24 hours 3. Delirium tremens within the past 24 hours 4. Hallucinations within the past 24 hours 5. Acute intervention needed for co occurring medical disorder 6. Acute intervention needed for co occurring psychiatric disorder 7. Severe withdrawal that cannot be handled at a lower level of care (continued vomiting, continued diarrhea, abnormal vital signs) requiring intravenous medication and/or fluids 8. Patient presents the following: CIWA greater than 12 Admission Criteria Met: Admission criteria met Admission ROS S - [facility] Chief Complaint: alcohol withdrawal symptoms Allergies/Adverse Reactions: Allergies Allergy/AdvReac Type Severity Reaction Status Date / Time No Known Allergies Allergy Verified 03/04/19 11:25 History of Present Illness: Patient is 59 yo male, homeless with hx of alcohol dependence, was evaluated on 03/03/19 at [facility] for intoxication and returns today for detox, c/o alcohol withdrawal symptoms. Denies hx of seizures or blackouts. Last detox [facility] 12/06/18 -12/08/18. PMHX: OA. Psych: depression and schizophrenia, no link to mental health provider in the community. Denies SI/HI. Exam Limitations: No Limitations - Ebola screening Have you traveled outside of the country in the last 21 days: No Have you had contact with anyone from an Ebola affected area: No Do you have a fever: No - Review of Systems Constitutional: Chills, Loss of Appetite, Changes in sleep EENT: reports: Other (runny nose) Respiratory: reports: Cough (x 3 weeks) Cardiac: reports: No Symptoms Reported GI: reports: Nausea, Poor Appetite, Poor Fluid Intake, Vomiting : reports: No Symptoms Reported Musculoskeletal: reports: Back Pain, Joint Pain Integumentary: reports: Pruritus, Rash (tx with cipro, abdomen) Neuro: reports: Headache, Tingling Endocrine: reports: Increased Thirst Hematology: reports: No Symptoms Reported Psychiatric: reports: Orientated x3, Anxious Other Systems: Reviewed and Negative Patient History - Patient Medical History Hx Anemia: No Hx Asthma: No Hx Chronic Obstructive Pulmonary Disease (COPD): No Hx Cancer: No Hx Cardiac Disorders: No Hx Congestive Heart Failure: No Hx Hypertension: No Hx Hypercholesterolemia: No Hx Pacemaker: No HX Cerebrovascular Accident: No Hx Seizures: No Hx Dementia: No Hx Diabetes: No Hx Gastrointestinal Disorders: No Hx Liver Disease: No Hx Genitourinary Disorders: No Hx Sexually Transmitted Disorders: No Hx Renal Disease (ESRD): No Hx Thyroid Disease: No Hx Human Immunodeficiency Virus (HIV): No Hx Hepatitis C: No Hx Depression: Yes Hx Suicide Attempt: No Hx Bipolar Disorder: No Hx Schizophrenia: Yes - Patient Surgical History Past Surgical History: Yes Hx Neurologic Surgery: No Hx Cataract Extraction: No Hx Cardiac Surgery: No Hx Lung Surgery: No Hx Breast Surgery: No Hx Breast Biopsy: No Hx Abdominal Surgery: No Hx Appendectomy: No Hx Cholecystectomy: No Hx Genitourinary Surgery: No Hx Section: No Hx Orthopedic Surgery: No Other Surgical History: KELOID RIGHT FACE Anesthesia Reaction: No - PPD History Previous Implant?: No Documented Results: Negative w/proof Date: 12/09/18 Results: 0 mm PPD to be Administered?: No - Smoking Cessation Smoking history: Current some day smoker Have you smoked in the past 12 months: No Aproximately how many cigarettes per day: 3 If you are a former smoker, when did you quit?: 2017 Cigars Per Day: 0 Hx Chewing Tobacco Use: No Initiated information on smoking cessation: Yes 'Breaking Loose' booklet given: 03/04/19 - Substance & Tx. History Hx Alcohol Use: Yes Substance Use Type: Alcohol Hx Substance Use Treatment: Yes ([facility] 12/06/18 -12/08/18) - Substances abused Alcohol Substance route: Oral Frequency: Daily Amount used: 3.5 pt. vodka Age of first use: 21 Date of last use: 03/04/19 Family Disease History - Family Disease History Family Disease History: Other: Father, Mother () Admission Physical Exam [facility] - Vital Signs Vital Signs: Vital Signs - 24 hr 03/04/19 03/04/19 11:30 11:58 Temperature 98 F 98 F Pulse Rate 80 80 Respiratory 18 18 Rate Blood Pressure 103/73 103/73 - Physical General Appearance: Yes: Disheveled, Mild Distress, Alcohol on Breath, Thin, Sweating, Anxious HEENTM: Yes: Hearing grossly Normal, Normal ENT Inspection, Normocephalic, Normal Voice, Pharynx Normal, Tm's normal, Rhinorrhea Respiratory: Yes: Chest Non-Tender, Lungs Clear, Normal Breath Sounds, No Respiratory Distress, No Accessory Muscle Use Neck: Yes: Within Normal Limits Breast: Yes: Breast Exam Deferred Cardiology: Yes: Regular Rhythm, Regular Rate Abdominal: Yes: Normal Bowel Sounds, Non Tender, Flat, Soft Genitourinary: Yes: Within Normal Limits Back: Yes: Normal Inspection Musculoskeletal: Yes: full range of Motion, Gait Steady, Pelvis Stable, Back pain Extremities: Yes: Normal Capillary Refill, Normal Inspection, Normal Range of Motion, Non-Tender Neurological: Yes: certified nurse operating room II-XII NML intact, Fully Oriented, Alert, Motor Strength 5/5, Depressed Affect Integumentary: Yes: Normal Color, Warm, Diaphoresis, Rash (abdomen) Lymphatic: Yes: Within Normal Limits - Diagnostic (1) Psychiatric disorder Current Visit: Yes Status: Suspected (2) Alcohol dependence with uncomplicated withdrawal Current Visit: Yes Status: Acute (3) Dermatitis Current Visit: Yes Status: Chronic (4) Nicotine dependence Current Visit: Yes Status: Chronic Qualifiers: Nicotine product type: cigarettes Substance use status: uncomplicated Qualified Code(s): F17.210 - Nicotine dependence, cigarettes, uncomplicated (5) Osteoarthritis Current Visit: Yes Status: Chronic Qualifiers: Osteoarthritis location: hip Laterality: left Cleared for Admission S - Detox or Rehab [facility] Level of Care: Medically Managed Detox Regimen/Protocol: Librium Breathalyzer - Breathalyzer Breathalyzer: 0.145 Urine Drug Screen - Test Device Lot number: [id number] Expiration date: 10/11/20 - Control Is test valid?: Yes - Results Drug screen NEGATIVE: No Urine drug screen results: BZO-Benzodiazepines Inpatient Rehab Admission - Rehab Decision to Admit Inpatient rehab admission?: No
[2019-03-04] MEDS ORDERED: COLLOIDAL OATMEAL 1 BAR EACH TP PRN (12:50)
[2019-03-04] MEDS ORDERED: HYDROCORTISONE 1% TOPICAL OINT 30 GM TUBE TP PRN (12:50)
[2019-03-04] MEDS ORDERED: ONDANSETRON *ODT* 4 MG TABLET SL PRN (12:59)
[2019-03-04] MEDS ORDERED: guaiFENesin 200 MG/10 ML 10 ML UNIT-DOSE CUPS PO PRN (12:59)
[2019-03-04] MEDS ORDERED: MELATONIN 5 MG TABLETS PO PRN (12:59)
[2019-03-04] MEDS ORDERED: BISMUTH SUBSALICYLATE 524 MG/30 ML UD PO PRN (12:59)
[2019-03-04] MEDS ORDERED: MENTHOL/PHENOL 1 EACH UD MM PRN (12:59)
[2019-03-04] MEDS ORDERED: P-EPHED 60MG/TRIPROLIDI 2.5MG TABLET PO PRN (12:59)
[2019-03-04] MEDS ORDERED: MAGNESIUM CITRATE 300 ML BOTTLE PO PRN (12:59)
[2019-03-04] MEDS ORDERED: MAG HYDROX/AL HYDROX/SIMETH 30 ML UNIT-DOSE CUP PO PRN (12:59)
[2019-03-04] MEDS ORDERED: MAGNESIUM HYDROX 2400MG/30ML ORAL SUSPENSION 30 ML CUP PO PRN (12:59)
[2019-03-04] MEDS ORDERED: hydrOXYzine PAMOATE 25 MG CAPSULE (FP) PO PRN (12:59)
[2019-03-04] MEDS ORDERED: METHOCARBAMOL 500 MG TABLET PO PRN (12:59)
[2019-03-04] MEDS ORDERED: ACETAMINOPHEN 325 MG TABLET (FP) PO PRN ×2 (12:59)
[2019-03-04] MEDS ORDERED: chlordiazePOXIDE HCL 25 MG CAPSULE PO PRN (12:59)
[2019-03-04] MEDS ORDERED: IBUPROFEN 400 MG TABLET (FP) PO PRN (12:59)
--- NOTE | 2019-03-04 14:29 | CONSULT ---
[facility] Psychiatric Consult - Data Date of interview: 03/04/19 Admission source: [facility] Identifying data: This is one of multiple admissions to [facility] for this 59 y/ o AA male self-referred for detoxification treatment (alcohol). Examined at [address] [place] [address]. Patient is single without children , homeless, unemployed and supported on SSI benefits. Substance Abuse History: Discusssed in this session. Patient confirmed a long standing history of alcohol abuse. See details in this segment of [facility] report : Smoking history: Current some day smoker. Have you smoked in the past 12 months : No. Aproximately how many cigarettes per day: 3. If you are a former smoker , when did you quit?: 2017. Cigars Per Day: 0. Hx Chewing Tobacco Use: No. Initiated information on smoking cessation: Yes. 'Breaking Loose' booklet given : 03/04/19. - Substance & Tx. History. Hx Alcohol Use: Yes. Substance Use Type: Alcohol. Hx Substance Use Treatment: Yes ([facility] 12/06/18 -12/08/18). - Substances abused. Alcohol. Substance route: Oral. Frequency: Daily. Amount used: 3.5 pt. vodka. Age of first use: 21. Date of last use: 03/04/19 Medical History: Patient endorses good general health. Psychiatric History: Patient admits to a history of multiple psychiatric hospitalizations ([facility]). " I am diagnosed with delusion ". Mr Voss indicates that he sees a psychiatrist at a mental health clinic in [facility]. denies taking psychotropic medications. Denies history of suicide attempts. patient is a poor historian as evidenced by this imported note of (from this publicity writer) : " History of multiple psychiatric hospitalizations.Patient is known to various psychiatric facilities, including [facility] and [facility]. Diagnosed with schizophrenia paranoid type. Mr Voss reports total non compliance with medications. He indicates his affiliation with an outpatient program, [facility], in [facility]." In this interview, the patient appears moderately sedated. Physical/Sexual Abuse/Trauma History: Patient denies.Previous records indicate a history of incareceration (20 years sentence for homicide). Additional Comment: Urine drug screen results: BZO-Benzodiazepines. Noted. Mental Status Exam - Mental Status Exam Alert and Oriented to: Place, Person Cognitive Function: Impaired Patient Appearance: Unkempt, Disheveled Mood: Withdrawn Affect: Mood Congruent, Constricted Patient Behavior: Sedated, Fatigued, Cooperative (marginally cooperative) Speech Pattern: Delayed, Slurred, Rambling Voice Loudness: Moderately Soft/Quiet Thought Process: Disorganized Thought Disorder: Bizarre Hallucinations: Denies Suicidal Ideation: Denies Homicidal Ideation: Denies Insight/Judgement: Poor Sleep: Well Appetite: Good (as evidenced by empty foodtray seen at bedside) Gait/Station: Other (not observed ; patient lying in bed) Psychiatric Findings - Problem List ([facility] 1, 2,3) (1) Alcohol dependence with uncomplicated withdrawal Current Visit: Yes Status: Acute (2) Nicotine dependence Current Visit: Yes Status: Chronic Qualifiers: Nicotine product type: cigarettes Substance use status: uncomplicated Qualified Code(s): F17.210 - Nicotine dependence, cigarettes, uncomplicated (3) Substance induced mood disorder Current Visit: Yes Status: Chronic (4) Delusional disorder Current Visit: Yes Status: Suspected (5) Non-compliance Current Visit: Yes Status: Chronic - Initial Treatment Plan Initial Treatment Plan: Psychoeducation. Sleep hygiene. Detoxification. Support. Observation.
[2019-03-04] MEDS: CIPROFLOXACIN HCL 500 MG PO SCH (18:09)
[2019-03-04] MEDS: chlordiazePOXIDE HCL 25 MG CAPSULE PO SCH ×2 (18:09→22:38)
[2019-03-04] MEDS ORDERED: CIPROFLOXACIN HCL 500 MG PO SCH (22:00)
[2019-03-04] MEDS: THIAMINE HCL 100 MG TABLET (FP) PO SCH (22:37)
[2019-03-04 23:30] LABS: HEMATOCRIT 40.1 % (35.4-49); HEMOGLOBIN 13.4 GM/dL (11.7-16.9); MCH 32.1 pg (25.7-33.7); MCHC 33.3 g/dl (32.0-35.9); MEAN CELL VOLUME 96.4 fl (80-96); MEAN PLT VOLUME 7.7 fl (7.5-11.1); PLATELET COUNT 223 K/MM3 (134-434); RBC 4.16 M/mm3 (4.00-5.60); RDW 16.4 % (11.9-15.9); WHITE BLOOD COUNT 5.2 K/mm3 (4.0-10.0)
[2019-03-04 23:45] LABS: ALBUMIN 3.6 g/dl (3.4-5.0); ALK PHOS 108 U/L (45-117); ANION GAP 5 MMOL/L (8-16); BILIRUBIN,TOTAL 0.8 mg/dL (0.2-1); BLOOD UREA NITROGEN 22 mg/dL (7-18); CALCIUM 8.7 mg/dL (8.5-10.1); CHLORIDE 103 mmol/L (98-107); CO2 31 mmol/L (21-32); CREATININE 0.7 mg/dL (0.55-1.3); GLUCOSE,RANDOM 76 mg/dL (74-106); SGOT/AST 27 U/L (15-37); SGPT/ALT 27 U/L (13-61); SODIUM 139 mmol/L (136-145); TOT PROT 6.9 g/dl (6.4-8.2)
[2019-03-05] MEDS: chlordiazePOXIDE HCL 25 MG CAPSULE PO SCH ×4 (06:11→22:24)
[2019-03-05] MEDS: CIPROFLOXACIN HCL 500 MG PO SCH ×2 (06:13→17:12)
[2019-03-05] MEDS ORDERED: PRENATAL VITAMINS W/ FOLIC ACID TABLET (FP) PO SCH (10:00)
[2019-03-05] MEDS ORDERED: PATIENT'S OWN MEDICATION (NON-FORMULARY) (Meloxicam [Meloxicam] 15 MG) PO SCH (10:00)
--- NOTE | 2019-03-05 14:11 | PN ---
S CIWA - CIWA Score Nausea/Vomitin-Mild Nausea/No Vomiting Muscle Tremors: 3 Anxiety: 2 Agitation: 3 Paroxysmal Sweats: 1-Minimal Palms Moist Orientation: 2-Disoriented Date<2 days Tacttile Disturbances: 0-None Auditory Disturbances: 0-None Visual Disturbances: 0-None Headache: 0-None Present CIWA-Ar Total Score: 12 [facility] Progress Note (SOAP) Subjective: reporting chronic knees pain encourage tylenal or meloxicam for pain Objective: 03/05/19 14:13 Vital Signs Temperature 96.7 F L 03/05/19 13:49 Pulse Rate 60 03/05/19 13:49 Respiratory Rate 18 03/05/19 13:49 Blood Pressure 152/87 03/05/19 13:49 O2 Sat by Pulse Oximetry (%) Laboratory Last Values WBC 5.2 K/mm3 (4.0-10.0) 03/04/19 13:05 RBC 4.16 M/mm3 (4.00-5.60) 03/04/19 13:05 Hgb 13.4 GM/dL (11.7-16.9) 03/04/19 13:05 Hct 40.1 % (35.4-49) 03/04/19 13:05 MCV 96.4 fl (80-96) H 03/04/19 13:05 MCH 32.1 pg (25.7-33.7) 03/04/19 13:05 MCHC 33.3 g/dl (32.0-35.9) 03/04/19 13:05 RDW 16.4 % (11.9-15.9) H 03/04/19 13:05 Plt Count 223 K/MM3 (134-434) 03/04/19 13:05 MPV 7.7 fl (7.5-11.1) 03/04/19 13:05 Sodium 139 mmol/L (136-145) 03/04/19 13:05 Potassium 4.0 mmol/L (3.5-5.1) 03/04/19 13:05 Chloride 103 mmol/L (98-107) 03/04/19 13:05 Carbon Dioxide 31 mmol/L (21-32) 03/04/19 13:05 Anion Gap 5 MMOL/L (8-16) L 03/04/19 13:05 BUN 22 mg/dL (7-18) H 03/04/19 13:05 Creatinine 0.7 mg/dL (0.55-1.3) 03/04/19 13:05 Creat Clearance w eGFR 115.83 (>60) 03/04/19 13:05 Random Glucose 76 mg/dL (74-106) 03/04/19 13:05 Calcium 8.7 mg/dL (8.5-10.1) 03/04/19 13:05 Total Bilirubin 0.8 mg/dL (0.2-1) 03/04/19 13:05 AST 27 U/L (15-37) 03/04/19 13:05 ALT 27 U/L (13-61) 03/04/19 13:05 Alkaline Phosphatase 108 U/L (45-117) 03/04/19 13:05 Total Protein 6.9 g/dl (6.4-8.2) 03/04/19 13:05 Albumin 3.6 g/dl (3.4-5.0) 03/04/19 13:05 RPR Titer Nonreactive (NONREACTIVE) 03/04/19 13:05 HIV 1&2 Antibody Screen Negative 03/04/19 13:05 HIV P24 Antigen Negative 03/04/19 13:05 lab noted Assessment: 03/05/19 14:14 withdrawal sx Plan: continue detox
[2019-03-05] MEDS: THIAMINE HCL 100 MG TABLET (FP) PO SCH (22:24)
[2019-03-06] MEDS: chlordiazePOXIDE HCL 25 MG CAPSULE PO SCH (05:31)
[2019-03-06] MEDS: CIPROFLOXACIN HCL 500 MG PO SCH (05:33)
--- NOTE | 2019-03-06 08:48 | DS ---
[facility] Detox Discharge Summary Admission Date: 03/04/19 Discharge Date: 03/06/19 - History Present History: Alcohol Dependence Additional Comments: 59 years old male admitted on 03/04/19 for alcohol withdrawal stabilization patent preferring begin alcohol rehab today alert no acute distress denies suicidal ideation aftercare [place] Pertinent Past History: bring in medication list and lab report to aftercare appointment - Physical Exam Results Vital Signs: Vital Signs Temperature 96.6 F L 03/06/19 06:18 Pulse Rate 73 03/06/19 06:18 Respiratory Rate 18 03/06/19 06:30 Blood Pressure 121/86 03/06/19 06:18 O2 Sat by Pulse Oximetry (%) Pertinent Admission Physical Exam Findings: alcohol withdrawal Laboratory Last Values WBC 5.2 K/mm3 (4.0-10.0) 03/04/19 13:05 RBC 4.16 M/mm3 (4.00-5.60) 03/04/19 13:05 Hgb 13.4 GM/dL (11.7-16.9) 03/04/19 13:05 Hct 40.1 % (35.4-49) 03/04/19 13:05 MCV 96.4 fl (80-96) H 03/04/19 13:05 MCH 32.1 pg (25.7-33.7) 03/04/19 13:05 MCHC 33.3 g/dl (32.0-35.9) 03/04/19 13:05 RDW 16.4 % (11.9-15.9) H 03/04/19 13:05 Plt Count 223 K/MM3 (134-434) 03/04/19 13:05 MPV 7.7 fl (7.5-11.1) 03/04/19 13:05 Sodium 139 mmol/L (136-145) 03/04/19 13:05 Potassium 4.0 mmol/L (3.5-5.1) 03/04/19 13:05 Chloride 103 mmol/L (98-107) 03/04/19 13:05 Carbon Dioxide 31 mmol/L (21-32) 03/04/19 13:05 Anion Gap 5 MMOL/L (8-16) L 03/04/19 13:05 BUN 22 mg/dL (7-18) H 03/04/19 13:05 Creatinine 0.7 mg/dL (0.55-1.3) 03/04/19 13:05 Creat Clearance w eGFR 115.83 (>60) 03/04/19 13:05 Random Glucose 76 mg/dL (74-106) 03/04/19 13:05 Calcium 8.7 mg/dL (8.5-10.1) 03/04/19 13:05 Total Bilirubin 0.8 mg/dL (0.2-1) 03/04/19 13:05 AST 27 U/L (15-37) 03/04/19 13:05 ALT 27 U/L (13-61) 03/04/19 13:05 Alkaline Phosphatase 108 U/L (45-117) 03/04/19 13:05 Total Protein 6.9 g/dl (6.4-8.2) 03/04/19 13:05 Albumin 3.6 g/dl (3.4-5.0) 03/04/19 13:05 RPR Titer Nonreactive (NONREACTIVE) 03/04/19 13:05 HIV 1&2 Antibody Screen Negative 03/04/19 13:05 HIV P24 Antigen Negative 03/04/19 13:05 lab noted - Treatment Hospital Course: Detox Protocol Followed, Detoxed Safely, Responded well, Discharged Condition Good, Rehab Referral Accepted Patient has Accepted a Rehab Referral to: [facility] - Medication Discharge Medications: Ambulatory Orders Ciprofloxacin HCl 500 mg PO BID 03/04/19 Meloxicam 15 mg PO DAILY 03/04/19 - Diagnosis (1) Alcohol dependence with uncomplicated withdrawal Status: Acute (2) Weight loss Status: Acute (3) Nicotine dependence Status: Acute Qualifiers: Nicotine product type: cigarettes Substance use status: in withdrawal Qualified Code(s): F17.213 - Nicotine dependence, cigarettes, with withdrawal (4) Substance induced mood disorder Status: Suspected - AMA Did Patient Leave Against Medical Advice: No
[2019-03-06 09:10] VITALS: BP 135/84; PULSE 76; TEMP 97.2
[2019-03-06] MEDS ORDERED: chlordiazePOXIDE HCL 10 MG CAPSULE PO PRN (17:00)
[2019-03-06] MEDS ORDERED: chlordiazePOXIDE HCL 10 MG CAPSULE PO SCH (17:00)
[2019-03-07] MEDS ORDERED: chlordiazePOXIDE HCL 10 MG CAPSULE PO SCH (17:00)
== END 2019-03-06 09:26 | disposition home or self-care (01) | DRG 775 ==
LOC: YASAS 10:45 → Y3N 13:12
PROVIDERS: ADMIT Surgery; ATTEND Surgery
PROC: HZ2ZZZZ Detoxification Services for Substance Abuse Treatment (ICD-10-PCS; principal; 2019-03-04)
DX: F10.230 Alcohol dependence with withdrawal, uncomplicated (principal); F17.213 Nicotine dependence, cigarettes, with withdrawal; F19.24 Other psychoactive substance dependence with psychoactive substance-induced mood disorder; F20.9 Schizophrenia, unspecified; F22 Delusional disorders; F32.9 Major depressive disorder, single episode, unspecified; L30.9 Dermatitis, unspecified; L85.3 Xerosis cutis; R63.4 Abnormal weight loss; Z68.1 Body mass index [BMI] 19.9 or less, adult; M16.12 Unilateral primary osteoarthritis, left hip; Z91.19 Patient's noncompliance with other medical treatment and regimen
CPT/HCPCS: 36415; 70450-TC; 80053; 80307; 82962; 85025; 85027; 85610; 86593; 87389; 99282-25

== ENCOUNTER 2019-10-04 21:36 | Inpatient (IN) | payer OTHER ==
[2019-10-04] MEDS ORDERED: ACETAMINOPHEN 325 MG TABLET (FP) PO PRN ×2 (21:49)
[2019-10-04] MEDS ORDERED: diazePAM 5 MG TABLET PO ONE (21:49)
[2019-10-04] MEDS ORDERED: MELATONIN 5 MG TABLETS PO PRN (21:49)
[2019-10-04] MEDS ORDERED: BISMUTH SUBSALICYLATE 524 MG/30 ML UD PO PRN (21:49)
[2019-10-04] MEDS ORDERED: MAG HYDROX/AL HYDROX/SIMETH 30 ML UNIT-DOSE CUP PO PRN (21:49)
[2019-10-04] MEDS ORDERED: NICOTINE POLACRILEX 2 MG GUM BUC PRN (21:49)
[2019-10-04] MEDS ORDERED: hydrOXYzine PAMOATE 25 MG CAPSULE (FP) PO PRN (21:49)
[2019-10-04] MEDS ORDERED: MENTHOL/PHENOL 1 EACH UD MM PRN (21:49)
[2019-10-04] MEDS ORDERED: MAGNESIUM HYDROX 2400MG/30ML ORAL SUSPENSION 30 ML CUP PO PRN (21:49)
[2019-10-04] MEDS ORDERED: METHOCARBAMOL 500 MG TABLET PO PRN (21:49)
[2019-10-04] MEDS ORDERED: MAGNESIUM CITRATE 300 ML BOTTLE PO PRN (21:49)
[2019-10-04 21:50] VITALS: BMI 19.9
[2019-10-04] MEDS ORDERED: TRIMETHOBENZAMIDE HCL 200MG/2ML INJ IM PRN (21:51)
--- NOTE | 2019-10-04 22:00 | HP ---
CIWA Score Nausea/Vomitin Muscle Tremors: 3 Anxiety: 3 Agitation: 3 Paroxysmal Sweats: 2 Orientation: 0-Oriented Tacttile Disturbances: 2-Mild Itch/Numbness/Burn Auditory Disturbances: 2-Mild Harshness/Frighten Visual Disturbances: 2-Mild Sensitivity Headache: 2-Mild CIWA-Ar Total Score: 22 - Admission Criteria OASAS Guidelines: Admission for Medically Managed Detox: Requires at least one of the followin. CIWA greater than 12 2. Seizures within the past 24 hours 3. Delirium tremens within the past 24 hours 4. Hallucinations within the past 24 hours 5. Acute intervention needed for co occurring medical disorder 6. Acute intervention needed for co occurring psychiatric disorder 7. Severe withdrawal that cannot be handled at a lower level of care (continued vomiting, continued diarrhea, abnormal vital signs) requiring intravenous medication and/or fluids 8. Admitting History and Physical - Smoking History Smoking history: Current some day smoker Have you smoked in the past 12 months: No Aproximately how many cigarettes per day: 3 If you are a former smoker, when did you quit?: 2017 - Alcohol/Substance Use Hx Alcohol Use: Yes Admission ROS [facility] Chief Complaint: DEPENDENT ON ETOH ONLY Allergies/Adverse Reactions: Allergies Allergy/AdvReac Type Severity Reaction Status Date / Time No Known Allergies Allergy Verified 10/04/19 21:46 History of Present Illness: THE PT. IS REQUESTING ADMISSION TO THE DETOX UNIT AND CAME FOR MEDICAL CLEARANCE Exam Limitations: Intoxication - Ebola screening Have you traveled outside of the country in the last 21 days: No (N) Have you had contact with anyone from an Ebola affected area: No Do you have a fever: No - Review of Systems Constitutional: See HPI, Loss of Appetite, Malaise, Weakness, Unexplained wgt Loss EENT: reports: See HPI Respiratory: reports: See HPI Cardiac: reports: See HPI GI: reports: See HPI, Nausea, Poor Appetite, Poor Fluid Intake, Vomiting, Indigestion, Abdominal cramping : reports: No Symptoms Reported, See HPI Musculoskeletal: reports: See HPI, Joint Pain, Muscle Pain, Muscle Weakness Integumentary: reports: See HPI, Flushing, Lesions, Sweating Neuro: reports: See HPI, Headache, Tremors, Weakness, Unsteady Gait, Ataxia Endocrine: reports: See HPI Hematology: reports: See HPI Psychiatric: reports: Judgement Intact, Anxious, Depressed Patient History - Patient Medical History Hx Anemia: No Hx Asthma: No Hx Chronic Obstructive Pulmonary Disease (COPD): No Hx Cancer: No Hx Cardiac Disorders: No Hx Congestive Heart Failure: No Hx Hypertension: No Hx Hypercholesterolemia: No Hx Pacemaker: No HX Cerebrovascular Accident: No Hx Seizures: No Hx Dementia: No Hx Diabetes: No Hx Gastrointestinal Disorders: No Hx Liver Disease: No Hx Genitourinary Disorders: No Hx Sexually Transmitted Disorders: No Hx Renal Disease (ESRD): No Hx Thyroid Disease: No Hx Human Immunodeficiency Virus (HIV): No Hx Hepatitis C: No Hx Depression: Yes Hx Suicide Attempt: No Hx Bipolar Disorder: No Hx Schizophrenia: Yes - Patient Surgical History Past Surgical History: Yes Hx Neurologic Surgery: No Hx Cataract Extraction: No Hx Cardiac Surgery: No Hx Lung Surgery: No Hx Breast Surgery: No Hx Breast Biopsy: No Hx Abdominal Surgery: No Hx Appendectomy: No Hx Cholecystectomy: No Hx Genitourinary Surgery: No Hx Section: No Hx Orthopedic Surgery: No Other Surgical History: KELOID REMOVAL FROM RIGHT SIDE OF FACE Anesthesia Reaction: No - PPD History Date: 12/09/18 Results: 0 mm - Smoking Cessation Smoking history: Current some day smoker Have you smoked in the past 12 months: No Aproximately how many cigarettes per day: 5 If you are a former smoker, when did you quit?: 2017 Cigars Per Day: 0 Hx Chewing Tobacco Use: No Initiated information on smoking cessation: Yes 'Breaking Loose' booklet given: 10/04/19 - Substance & Tx. History Hx Alcohol Use: Yes Hx Substance Use: No Substance Use Type: Alcohol Hx Substance Use Treatment: Yes - Substances abused Alcohol Substance route: Oral Frequency: Daily Amount used: 3.5 pt. vodka Age of first use: 21 Date of last use: 10/04/19 Admission Physical Exam [facility] - Vital Signs Vital Signs: Vital Signs - 24 hr 10/04/19 21:46 Temperature 96.0 F L Pulse Rate 88 Respiratory 18 Rate Blood Pressure 103/63 - Physical General Appearance: Yes: No Apparent Distress, Appropriately Dressed, Alcohol on Breath, Intoxicated, Thin, Tremorous, Sweating, Anxious HEENTM: Yes: Hearing grossly Normal, Normocephalic, Normal Voice, MELINDA, Pharynx Normal Respiratory: Yes: Chest Non-Tender, Lungs Clear, Normal Breath Sounds, No Respiratory Distress, No Accessory Muscle Use Neck: Yes: No masses,lesions,Nodules, Supple, Trachea in good position Breast: Yes: Breast Exam Deferred, Axillae without masses Cardiology: Yes: Regular Rhythm, S1, S2, Tachycardia Abdominal: Yes: Normal Bowel Sounds, Non Tender, Flat, Soft Back: Yes: Decreased Range of Motion Musculoskeletal: Yes: Joint Stiffness, Muscle Pain, Muscle weakness Extremities: Yes: Normal Capillary Refill, Non-Tender, Tremors Neurological: Yes: Alert, Motor Strength 5/5, Depressed Affect Integumentary: Yes: Warm, Moist Lymphatic: Yes: Within Normal Limits - Addiitonal Findings: THE PT. IS WALKING WITH A CANE DUE TO ARTHRITIS IN THE HIP ANSWERING TO QUESTION SLOWLY WITH DELAYED RESPONSE DUE TO HIGH ISATU LEVEL - Diagnostic (1) Alcohol dependence with uncomplicated withdrawal Current Visit: No Status: Chronic (2) Alcohol intoxication Current Visit: No Status: Chronic Qualifiers: Complication of substance-induced condition: uncomplicated Qualified Code(s ): F10.920 - Alcohol use, unspecified with intoxication, uncomplicated (3) Nicotine dependence Current Visit: No Status: Chronic Qualifiers: Nicotine product type: cigarettes Substance use status: in withdrawal Qualified Code(s): F17.213 - Nicotine dependence, cigarettes, with withdrawal (4) Anxiety and depression Current Visit: No Status: Chronic (5) Dermatitis Current Visit: No Status: Chronic (6) Dermatosis Current Visit: No Status: Chronic (7) Osteoarthritis Current Visit: No Status: Chronic Qualifiers: Osteoarthritis location: hip Laterality: left (8) Schizoaffective disorder Current Visit: No Status: Chronic Qualifiers: Schizoaffective disorder type: unspecified Qualified Code(s): F25.9 - Schizoaffective disorder, unspecified Cleared for Admission [facility] - Detox or Rehab [facility] Level of Care: Medically Managed Detox Regimen/Protocol: Valium Breathalyzer - Breathalyzer Breathalyzer: 0.308 Urine Drug Screen - Test Device Lot number: [id number] Expiration date: 06/11/21 - Control Is test valid?: Yes - Results Drug screen NEGATIVE: No Urine drug screen results: BZO-Benzodiazepines Inpatient Rehab Admission - Rehab Decision to Admit Inpatient rehab admission?: No
[2019-10-04] MEDS: diazePAM 5 MG TABLET PO SCH (22:47)
[2019-10-04] MEDS: THIAMINE HCL 100 MG TABLET (FP) PO SCH (22:48)
[2019-10-05] MEDS: diazePAM 5 MG TABLET PO SCH ×3 (06:29→23:11)
[2019-10-05] MEDS: PRENATAL VITAMINS W/ FOLIC ACID TABLET (FP) PO SCH (11:32)
[2019-10-05] MEDS: NICOTINE 14 MG/24 HOURS TOPICAL PATCH TD SCH (11:32)
[2019-10-05 12:17] LABS: HEMATOCRIT 36.2 % (35.4-49); HEMOGLOBIN 12.1 GM/dL (11.7-16.9); MCHC 33.5 g/dl (32.0-35.9); MEAN CELL VOLUME 92.6 fl (80-96); MEAN PLT VOLUME 7.7 fl (7.5-11.1); PLATELET COUNT 234 K/MM3 (134-434); RBC 3.91 M/mm3 (4.00-5.60); RDW 16.8 % (11.9-15.9); WHITE BLOOD COUNT 4.1 K/mm3 (4.0-10.0)
[2019-10-05] MEDS: diazePAM 5 MG TABLET PO PRN (12:22)
--- NOTE | 2019-10-05 12:25 | PN ---
S CIWA - CIWA Score Nausea/Vomitin Muscle Tremors: 3 Anxiety: 3 Agitation: 3 Paroxysmal Sweats: 3 Orientation: 1-Uncertain about Date Tacttile Disturbances: 2-Mild Itch/Numbness/Burn Auditory Disturbances: 0-None Visual Disturbances: 0-None Headache: 0-None Present CIWA-Ar Total Score: 17 S Progress Note (SOAP) Subjective: 59 years old male admitted on for alcohol withdrawal sx management treated with valium detox regimen ate breakfast resting on bed ambulating from bed to bathroom with cane slowly but steady wheelchair on bed side for safety Objective: 10/05/19 12:24 Vital Signs Temperature 96.2 F L 10/05/19 09:39 Pulse Rate 62 10/05/19 09:39 Respiratory Rate 85 H 10/05/19 09:39 Blood Pressure 137/81 10/05/19 09:39 O2 Sat by Pulse Oximetry (%) Laboratory Last Values WBC 4.1 K/mm3 (4.0-10.0) 10/05/19 07:35 RBC 3.91 M/mm3 (4.00-5.60) L 10/05/19 07:35 Hgb 12.1 GM/dL (11.7-16.9) 10/05/19 07:35 Hct 36.2 % (35.4-49) 10/05/19 07:35 MCV 92.6 fl (80-96) 10/05/19 07:35 MCH 31.0 pg (25.7-33.7) 10/05/19 07:35 MCHC 33.5 g/dl (32.0-35.9) 10/05/19 07:35 RDW 16.8 % (11.9-15.9) H 10/05/19 07:35 Plt Count 234 K/MM3 (134-434) 10/05/19 07:35 MPV 7.7 fl (7.5-11.1) 10/05/19 07:35 RPR Titer Nonreactive (NONREACTIVE) 10/05/19 07:35 lab noted Assessment: alcohol withdrawal sx Plan: continue valium detox regimen
[2019-10-05 12:26] LABS: ALBUMIN 3.2 g/dl (3.4-5.0); BILIRUBIN,TOTAL 0.4 mg/dL (0.2-1); BLOOD UREA NITROGEN 17.4 mg/dL (7-18); CALCIUM 8.3 mg/dL (8.5-10.1); CREATININE 0.8 mg/dL (0.55-1.3); POTASSIUM 3.9 mmol/L (3.5-5.1)
--- NOTE | 2019-10-05 15:50 | CONSULT ---
[facility] Psychiatric Consult - Data Date of interview: 10/05/19 Admission source: [facility] Identifying data: Adult Basic Education Manager approached patient for psychiatric consultation. Patient refused to be seen. Stated to instructional writer , " I do not feel good today. Maybe we can speak tomorrow." Psychiatric consultation refused. Nursing staff informed.
[2019-10-05] MEDS: IBUPROFEN 400 MG TABLET (FP) PO PRN ×2 (16:39→23:12)
[2019-10-05] MEDS: THIAMINE HCL 100 MG TABLET (FP) PO SCH (23:10)
[2019-10-06] MEDS: diazePAM 5 MG TABLET PO SCH ×2 (06:26→17:52)
[2019-10-06] MEDS: PRENATAL VITAMINS W/ FOLIC ACID TABLET (FP) PO SCH (10:20)
[2019-10-06] MEDS: NICOTINE 14 MG/24 HOURS TOPICAL PATCH TD SCH (10:20)
--- NOTE | 2019-10-06 14:20 | PN ---
S CIWA - CIWA Score Nausea/Vomitin-Mild Nausea/No Vomiting Muscle Tremors: 3 Anxiety: 2 Agitation: 2 Paroxysmal Sweats: 1-Minimal Palms Moist Orientation: 0-Oriented Tacttile Disturbances: 1-Very Mild Itch/Numbness Auditory Disturbances: 1-Very Mild Visual Disturbances: 0-None Headache: 1-Very Mild CIWA-Ar Total Score: 12 [facility] Progress Note (SOAP) Subjective: 59 years old male admitted on 10/04/19 for alcohol withdrawal sx management treated with valium detox regimen patient is alert oriented x 3 speech clear coherently ambulating with cane c/o chronic legs pain patient may use wheelchair as ambulatory aid Objective: 10/06/19 14:20 Vital Signs Temperature 97.8 F 10/06/19 13:10 Pulse Rate 87 10/06/19 13:10 Respiratory Rate 18 10/06/19 13:10 Blood Pressure 139/93 10/06/19 13:10 O2 Sat by Pulse Oximetry (%) Laboratory Last Values WBC 4.1 K/mm3 (4.0-10.0) 10/05/19 07:35 RBC 3.91 M/mm3 (4.00-5.60) L 10/05/19 07:35 Hgb 12.1 GM/dL (11.7-16.9) 10/05/19 07:35 Hct 36.2 % (35.4-49) 10/05/19 07:35 MCV 92.6 fl (80-96) 10/05/19 07:35 MCH 31.0 pg (25.7-33.7) 10/05/19 07:35 MCHC 33.5 g/dl (32.0-35.9) 10/05/19 07:35 RDW 16.8 % (11.9-15.9) H 10/05/19 07:35 Plt Count 234 K/MM3 (134-434) 10/05/19 07:35 MPV 7.7 fl (7.5-11.1) 10/05/19 07:35 Sodium 144 mmol/L (136-145) 10/05/19 07:35 Potassium 3.9 mmol/L (3.5-5.1) 10/05/19 07:35 Chloride 110 mmol/L (98-107) H 10/05/19 07:35 Carbon Dioxide 30 mmol/L (21-32) 10/05/19 07:35 Anion Gap 4 MMOL/L (8-16) L 10/05/19 07:35 BUN 17.4 mg/dL (7-18) 10/05/19 07:35 Creatinine 0.8 mg/dL (0.55-1.3) 10/05/19 07:35 Est GFR (CKD-EPI)AfAm 114.13 10/05/19 07:35 Est GFR (CKD-EPI)NonAf 98.47 10/05/19 07:35 Random Glucose 67 mg/dL (74-106) L 10/05/19 07:35 Calcium 8.3 mg/dL (8.5-10.1) L 10/05/19 07:35 Total Bilirubin 0.4 mg/dL (0.2-1) 10/05/19 07:35 AST 23 U/L (15-37) 10/05/19 07:35 ALT 24 U/L (13-61) 10/05/19 07:35 Alkaline Phosphatase 86 U/L (45-117) 10/05/19 07:35 Total Protein 6.0 g/dl (6.4-8.2) L 10/05/19 07:35 Albumin 3.2 g/dl (3.4-5.0) L 10/05/19 07:35 RPR Titer Nonreactive (NONREACTIVE) 10/05/19 07:35 lab noted Assessment: 10/06/19 14:20 alcohol withdrawal sx Plan: continue valium detox regimen
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
[2019-10-06] MEDS: diazePAM 5 MG TABLET PO PRN (21:34)
[2019-10-06] MEDS: THIAMINE HCL 100 MG TABLET (FP) PO SCH (21:35)
[2019-10-06] MEDS: IBUPROFEN 400 MG TABLET (FP) PO PRN (21:35)
[2019-10-07] MEDS ORDERED: diazePAM 5 MG TABLET PO ONE (06:00)
[2019-10-07 06:22] VITALS: BP 130/82; PULSE 56; TEMP 96.3
--- NOTE | 2019-10-07 09:27 | DS ---
[facility] Detox Discharge Summary Admission Date: 10/04/19 Discharge Date: 10/07/19 - History Present History: Alcohol Dependence Additional Comments: 59 years old male admitted on 10/04/19 for alcohol withdrawal sx management treated with valium detox regimen patient is alert oriented x 3 cardiac s1s2 regular rate rhythm respiratory clear lung bilaterally on auscultation ambulating on hallway from room to bathroom to nurse station to day room without cane steady gait skin warm and dry strong recommend the patient to use cane - Physical Exam Results Vital Signs: Vital Signs Temperature 96.3 F L 10/07/19 06:22 Pulse Rate 56 L 10/07/19 06:22 Respiratory Rate 18 10/07/19 06:22 Blood Pressure 130/82 10/07/19 06:22 O2 Sat by Pulse Oximetry (%) Pertinent Admission Physical Exam Findings: alcohol withdrawal sx Vital Signs Temperature 96.3 F L 10/07/19 09:28 Pulse Rate 56 L 10/07/19 09:28 Respiratory Rate 18 10/07/19 09:28 Blood Pressure 130/82 10/07/19 09:28 O2 Sat by Pulse Oximetry (%) Laboratory Last Values WBC 4.1 K/mm3 (4.0-10.0) 10/05/19 07:35 RBC 3.91 M/mm3 (4.00-5.60) L 10/05/19 07:35 Hgb 12.1 GM/dL (11.7-16.9) 10/05/19 07:35 Hct 36.2 % (35.4-49) 10/05/19 07:35 MCV 92.6 fl (80-96) 10/05/19 07:35 MCH 31.0 pg (25.7-33.7) 10/05/19 07:35 MCHC 33.5 g/dl (32.0-35.9) 10/05/19 07:35 RDW 16.8 % (11.9-15.9) H 10/05/19 07:35 Plt Count 234 K/MM3 (134-434) 10/05/19 07:35 MPV 7.7 fl (7.5-11.1) 10/05/19 07:35 Sodium 144 mmol/L (136-145) 10/05/19 07:35 Potassium 3.9 mmol/L (3.5-5.1) 10/05/19 07:35 Chloride 110 mmol/L (98-107) H 10/05/19 07:35 Carbon Dioxide 30 mmol/L (21-32) 10/05/19 07:35 Anion Gap 4 MMOL/L (8-16) L 10/05/19 07:35 BUN 17.4 mg/dL (7-18) 10/05/19 07:35 Creatinine 0.8 mg/dL (0.55-1.3) 10/05/19 07:35 Est GFR (CKD-EPI)AfAm 114.13 10/05/19 07:35 Est GFR (CKD-EPI)NonAf 98.47 10/05/19 07:35 Random Glucose 67 mg/dL (74-106) L 10/05/19 07:35 Calcium 8.3 mg/dL (8.5-10.1) L 10/05/19 07:35 Total Bilirubin 0.4 mg/dL (0.2-1) 10/05/19 07:35 AST 23 U/L (15-37) 10/05/19 07:35 ALT 24 U/L (13-61) 10/05/19 07:35 Alkaline Phosphatase 86 U/L (45-117) 10/05/19 07:35 Total Protein 6.0 g/dl (6.4-8.2) L 10/05/19 07:35 Albumin 3.2 g/dl (3.4-5.0) L 10/05/19 07:35 RPR Titer Nonreactive (NONREACTIVE) 10/05/19 07:35 lab noted - Treatment Hospital Course: Detox Protocol Followed, Detoxed Safely, Responded well, Discharged Condition Good, Rehab Referral Accepted Patient [facility] - Medication Discharge Medications: Ambulatory Orders NK [No Known Home Medication] 09/24/19 - Diagnosis (1) Alcohol dependence with uncomplicated withdrawal Current Visit: Yes Status: Acute (2) Nicotine dependence Current Visit: Yes Status: Acute Qualifiers: Nicotine product type: cigarettes Substance use status: in withdrawal Qualified Code(s): F17.213 - Nicotine dependence, cigarettes, with withdrawal (3) Substance induced mood disorder Current Visit: Yes Status: Suspected (4) Weight loss Current Visit: Yes Status: Acute - AMA Did Patient Leave Against Medical Advice: No CIWA Score - CIWA Score Nausea/Vomitin-No Nausea/No Vomiting Muscle Tremors: 2 Anxiety: 1-Mildly Anxious Agitation: 1-Slight > Activity Paroxysmal Sweats: 1-Minimal Palms Moist Orientation: 0-Oriented Tacttile Disturbances: 1-Very Mild Itch/Numbness Auditory Disturbances: 0-None Visual Disturbances: 0-None Headache: 1-Very Mild CIWA-Ar Total Score: 7
[2019-10-07] MEDS: NICOTINE 14 MG/24 HOURS TOPICAL PATCH TD SCH (10:00)
[2019-10-07] MEDS: PRENATAL VITAMINS W/ FOLIC ACID TABLET (FP) PO SCH (10:00)
== END 2019-10-07 10:01 | disposition home or self-care (01) | DRG 775 ==
LOC: YASAS 21:36 → Y3N 21:57
PROVIDERS: ADMIT Allergy & Immunology; ATTEND Allergy & Immunology
PROC: HZ2ZZZZ Detoxification Services for Substance Abuse Treatment (ICD-10-PCS; principal; 2019-10-04)
DX: F10.230 Alcohol dependence with withdrawal, uncomplicated (principal); F10.220 Alcohol dependence with intoxication, uncomplicated; F17.210 Nicotine dependence, cigarettes, uncomplicated; F25.9 Schizoaffective disorder, unspecified; F19.24 Other psychoactive substance dependence with psychoactive substance-induced mood disorder; F41.8 Other specified anxiety disorders; F32.9 Major depressive disorder, single episode, unspecified; M12.9 Arthropathy, unspecified; M16.12 Unilateral primary osteoarthritis, left hip; L30.9 Dermatitis, unspecified; L98.9 Disorder of the skin and subcutaneous tissue, unspecified; R63.4 Abnormal weight loss; Z68.1 Body mass index [BMI] 19.9 or less, adult; Z99.89 Dependence on other enabling machines and devices; Z91.19 Patient's noncompliance with other medical treatment and regimen
CPT/HCPCS: 36415; 80053; 85027; 86593

== ENCOUNTER 2020-05-17 19:15 | Inpatient (IN) | payer OTHER ==
[2020-05-17 20:20] VITALS: BMI 19.8
--- NOTE | 2020-05-17 21:21 | HP ---
CIWA Score Nausea/Vomitin-Mild Nausea/No Vomiting Muscle Tremors: 1-None Visible, but Delta Anxiety: 4-Mod. Anxious/Guarded Agitation: 4-Moderately Restless Paroxysmal Sweats: No Perspiration Orientation: 1-Uncertain about Date Tacttile Disturbances: 3-Moderate Itch/Numb/Burn (itch) Auditory Disturbances: 0-None Visual Disturbances: 0-None Headache: 0-None Present CIWA-Ar Total Score: 14 - Admission Criteria OASAS Guidelines: Admission for Medically Managed Detox: Requires at least one of the followin. CIWA greater than 12 2. Seizures within the past 24 hours 3. Delirium tremens within the past 24 hours 4. Hallucinations within the past 24 hours 5. Acute intervention needed for co occurring medical disorder 6. Acute intervention needed for co occurring psychiatric disorder 7. Severe withdrawal that cannot be handled at a lower level of care (continued vomiting, continued diarrhea, abnormal vital signs) requiring intravenous medication and/or fluids 8. Patient presents the following: CIWA greater than 12 Admission Criteria Met: Admission criteria met Admitting History and Physical - Smoking History Smoking history: Current every day smoker Have you smoked in the past 12 months: Yes Aproximately how many cigarettes per day: 5 If you are a former smoker, when did you quit?: 2017 - Alcohol/Substance Use Hx Alcohol Use: Yes Admission ROS [facility] Chief Complaint: c/o alcohol withdrawal. seeking detox Allergies/Adverse Reactions: Allergies Allergy/AdvReac Type Severity Reaction Status Date / Time No Known Allergies Allergy Verified 05/17/20 20:32 History of Present Illness: 60 Y.O. AA MALE HERE FOR ALCOHOL DETOX. HE IS SELF REFERRED. KNOWN TO PROGRAM. LAST ADM. 02/28/20-03/02/20 FOR DETOX. REPORTS RELAPSING IMMEDIATELY AFTER DC. DRINKING ALCOHOL 5/7 DAYS A WEEK. LAST DRINK 10 HOURS AGO. NOW PRESENTS WITH C/O WITHDRAWAL SX'S. DENIES HX/O BLACK OUTS, SEIZURES. REPORTS LONGEST CLEAN TIME IN THE PAST 12 MONTHS APPROX 1 MONTH. HOMELESS, SSD, DENIES LEGALS. Exam Limitations: Physical Impairment (AMBULATES WITH CANE) - Ebola screening Have you traveled outside of the country in the last 21 days: No Have you had contact with anyone from an Ebola affected area: No Have you been sick,other than usual withdrawal symptoms: No Do you have a fever: No - Review of Systems Constitutional: Loss of Appetite EENT: reports: Dental Problems (MISSING TEETH) Respiratory: reports: No Symptoms reported Cardiac: reports: No Symptoms Reported GI: reports: Nausea, Poor Fluid Intake, Abdominal cramping : reports: No Symptoms Reported Musculoskeletal: reports: Joint Pain (LEFT HIP OA) Integumentary: reports: No Symptoms Reported, Pruritus, Rash (ON KEFLEX THERAPY AND CLOTRIMAZOLE 1% CREAM) Neuro: reports: Unsteady Gait (AMBUALTES WITH A CANE) Endocrine: reports: No Symptoms Reported Hematology: reports: No Symptoms Reported Psychiatric: reports: Orientated x3, Anxious, Depressed Other Systems: Reviewed and Negative Patient History - Patient Medical History Hx Anemia: No Hx Asthma: No Hx Chronic Obstructive Pulmonary Disease (COPD): No Hx Cancer: No Hx Cardiac Disorders: No Hx Congestive Heart Failure: No Hx Hypertension: No Hx Hypercholesterolemia: No Hx Pacemaker: No HX Cerebrovascular Accident: No Hx Seizures: No Hx Dementia: No Hx Diabetes: No Hx Gastrointestinal Disorders: No Hx Liver Disease: No Hx Genitourinary Disorders: No Hx Sexually Transmitted Disorders: No Hx Renal Disease (ESRD): No Hx Thyroid Disease: No Hx Human Immunodeficiency Virus (HIV): No Hx Hepatitis C: No Hx Depression: Yes Hx Suicide Attempt: No Hx Bipolar Disorder: No Hx Schizophrenia: Yes - Patient Surgical History Past Surgical History: Yes Hx Neurologic Surgery: No Hx Cataract Extraction: No Hx Cardiac Surgery: No Hx Lung Surgery: No Hx Breast Surgery: No Hx Breast Biopsy: No Hx Abdominal Surgery: No Hx Appendectomy: No Hx Cholecystectomy: No Hx Genitourinary Surgery: No Hx Section: No Hx Orthopedic Surgery: No Other Surgical History: KELOID REMOVAL FROM RIGHT SIDE OF FACE Anesthesia Reaction: No - PPD History Previous Implant?: Yes Documented Results: Negative w/o proof Date: 02/12/20 Results: NEG CXR PPD to be Administered?: No - Smoking Cessation Smoking history: Current every day smoker Have you smoked in the past 12 months: Yes Aproximately how many cigarettes per day: 3 Cigars Per Day: 0 Hx Chewing Tobacco Use: No Initiated information on smoking cessation: Yes 'Breaking Loose' booklet given: 05/17/20 - Substance & Tx. History Hx Alcohol Use: Yes Hx Substance Use: Yes Substance Use Type: Alcohol Hx Substance Use Treatment: No ([facility]) - Substances abused Alcohol Substance route: Oral Frequency: 3-6 times per week (5 X A WEEK) Amount used: LIQUOR- 1 PINT, BEER- 3(15OZ) Age of first use: 31 Date of last use: 05/17/20 Admission Physical Exam S - Vital Signs Vital Signs: Vital Signs - 24 hr 05/17/20 05/17/20 20:19 20:36 Temperature 98.2 F 98.2 F Pulse Rate 93 H 93 H Respiratory 18 18 Rate Blood Pressure 114/69 114/69 - Physical General Appearance: Yes: Moderate Distress, Thin, Tremorous (FELT), Irritable, Anxious, Other (RESTLESS) HEENTM: Yes: EOMI, Normocephalic, Normal Voice, MELINDA, Pharynx Normal Respiratory: Yes: Chest Non-Tender, Lungs Clear, Normal Breath Sounds, No Respiratory Distress, No Accessory Muscle Use Neck: Yes: No masses,lesions,Nodules, Supple, Trachea in good position Breast: Yes: Breasts Symetrical Cardiology: Yes: Regular Rhythm, Regular Rate, S1, S2 Abdominal: Yes: Non Tender, Flat, Soft, Increased Bowel Sounds Genitourinary: Yes: Within Normal Limits Back: Yes: Normal Inspection Musculoskeletal: Yes: Joint Stiffness (left hip), Other (AMBULATES WITH Cne 2/2 left hip cane chronic) Extremities: Yes: Non-Tender, Tremors (felt), Other (lrom to left hip, ambulates with cane) Neurological: Yes: Fully Oriented, Alert, Motor Strength 5/5, Depressed Affect Integumentary: Yes: Dry, Warm, Rash (chronic pruritic rash with hyperpigm entation of skin, on keflex therapy) Lymphatic: Yes: Within Normal Limits - Diagnostic (1) Alcohol dependence with uncomplicated withdrawal Current Visit: Yes Status: Acute (2) Weight loss Current Visit: Yes Status: Suspected (3) Dermatitis Current Visit: Yes Status: Chronic (4) Dry skin Current Visit: Yes Status: Chronic (5) Nicotine dependence Current Visit: Yes Status: Chronic Qualifiers: Nicotine product type: cigarettes Substance use status: uncomplicated Qualified Code(s): F17.210 - Nicotine dependence, cigarettes, uncomplicated (6) Osteoarthritis Current Visit: Yes Status: Chronic Qualifiers: Osteoarthritis location: hip Osteoarthritis type: unspecified Laterality: left Qualified Code(s): M16.12 - Unilateral primary osteoarthritis, left hip (7) Non-compliance Current Visit: Yes Status: Suspected (8) Substance induced mood disorder Current Visit: Yes Status: Suspected (9) Homeless Current Visit: Yes Status: Chronic Cleared for Admission [facility] - Detox or Rehab [facility] Level of Care: Medically Managed Detox Regimen/Protocol: Librium Claeared for Rehab Admission: No Breathalyzer - Breathalyzer Breathalyzer: 0.076 Urine Drug Screen - Test Device Lot number: [id number] Expiration date: 07/12/21 - Control Is test valid?: Yes - Results Drug screen NEGATIVE: Yes Urine drug screen results: BZO-Benzodiazepines Inpatient Rehab Admission - Rehab Decision to Admit Inpatient rehab admission?: No
[2020-05-17] MEDS ORDERED: guaiFENesin 200 MG/10 ML 10 ML UNIT-DOSE CUPS PO PRN (21:34)
[2020-05-17] MEDS ORDERED: ACETAMINOPHEN 325 MG TABLET (FP) PO PRN ×2 (21:34)
[2020-05-17] MEDS ORDERED: MENTHOL/PHENOL 1 EACH UD MM PRN (21:34)
[2020-05-17] MEDS ORDERED: hydrOXYzine PAMOATE 25 MG CAPSULE (FP) PO PRN (21:34)
[2020-05-17] MEDS ORDERED: BISMUTH SUBSALICYLATE 524 MG/30 ML UD PO PRN (21:34)
[2020-05-17] MEDS ORDERED: P-EPHED 60MG/TRIPROLIDI 2.5MG TABLET PO PRN (21:34)
[2020-05-17] MEDS ORDERED: MAGNESIUM HYDROX 2400MG/30ML ORAL SUSPENSION 30 ML CUP PO PRN (21:34)
[2020-05-17] MEDS ORDERED: chlordiazePOXIDE HCL 10 MG CAPSULE PO PRN (21:34)
[2020-05-17] MEDS ORDERED: MAG HYDROX/AL HYDROX/SIMETH 30 ML UNIT-DOSE CUP PO PRN (21:34)
[2020-05-17] MEDS ORDERED: MAGNESIUM CITRATE 300 ML BOTTLE PO PRN (21:34)
[2020-05-17] MEDS ORDERED: NICOTINE POLACRILEX 2 MG GUM BUC PRN (21:34)
[2020-05-17] MEDS ORDERED: DICYCLOMINE HCL 10 MG CAPSULE PO PRN (21:34)
[2020-05-17] MEDS ORDERED: ONDANSETRON *ODT* 4 MG TABLET SL ONE (22:00)
[2020-05-17] MEDS: CEPHALEXIN MONOHYDRATE 500 MG CAPSULE (UD) PO SCH (22:33)
[2020-05-17] MEDS: chlordiazePOXIDE HCL 25 MG CAPSULE PO SCH (22:33)
[2020-05-17] MEDS: THIAMINE HCL 100 MG TABLET (FP) PO SCH (22:33)
[2020-05-17] MEDS: MELATONIN 5 MG TABLETS PO SCH (22:35)
[2020-05-17] MEDS: CLOTRIMAZOLE 1% CREAM 15 GM TUBE TP SCH (23:49)
[2020-05-18] MEDS: CEPHALEXIN MONOHYDRATE 500 MG CAPSULE (UD) PO SCH ×3 (05:44→22:17)
[2020-05-18] MEDS: chlordiazePOXIDE HCL 25 MG CAPSULE PO SCH ×3 (05:44→22:17)
[2020-05-18] MEDS: METHOCARBAMOL 500 MG TABLET PO PRN ×3 (07:47→20:06)
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
[2020-05-18] MEDS: PRENATAL VITAMINS W/ FOLIC ACID TABLET (FP) PO SCH (09:15)
[2020-05-18] MEDS: CLOTRIMAZOLE 1% CREAM 15 GM TUBE TP SCH ×2 (09:15→22:19)
[2020-05-18] MEDS: NICOTINE 14 MG/24 HOURS TOPICAL PATCH TD SCH (09:15)
[2020-05-18] MEDS: IBUPROFEN 400 MG TABLET (FP) PO PRN ×2 (09:16→20:06)
[2020-05-18 10:29] LABS: HEMATOCRIT 39.4 % (35.4-49); HEMOGLOBIN 13.2 GM/dL (11.7-16.9); MCH 31.5 pg (25.7-33.7); MCHC 33.3 g/dl (32.0-35.9); MEAN CELL VOLUME 94.6 fl (80-96); MEAN PLT VOLUME 7.5 fl (7.5-11.1); PLATELET COUNT 304 K/MM3 (134-434); RBC 4.17 M/mm3 (4.00-5.60); RDW 15.7 % (11.9-15.9); WHITE BLOOD COUNT 7.3 K/mm3 (4.0-10.0)
[2020-05-18 10:31] LABS: ALBUMIN 3.3 g/dl (3.4-5.0); BILIRUBIN,TOTAL 1.3 mg/dL (0.2-1); BLOOD UREA NITROGEN 19.7 mg/dL (7-18); CALCIUM 8.9 mg/dL (8.5-10.1); CREATININE 0.8 mg/dL (0.55-1.3); POTASSIUM 4.1 mmol/L (3.5-5.1); TOT PROT 6.5 g/dl (6.4-8.2)
--- NOTE | 2020-05-18 11:02 | PN ---
[facility] CIWA - CIWA Score Nausea/Vomitin-Mild Nausea/No Vomiting Muscle Tremors: 2 Anxiety: 3 Agitation: 3 Paroxysmal Sweats: No Perspiration Orientation: 0-Oriented Tacttile Disturbances: 1-Very Mild Itch/Numbness Auditory Disturbances: 0-None Visual Disturbances: 0-None Headache: 2-Mild CIWA-Ar Total Score: 12 S Progress Note (SOAP) Subjective: alert,irritable,anxious,interrupted sleep,pain in the hip,ambulation with cane ,nausea Objective: 05/18/20 11:00 Vital Signs Temperature 97.1 F L 05/18/20 08:52 Pulse Rate 75 05/18/20 08:52 Respiratory Rate 18 05/18/20 08:52 Blood Pressure 118/70 05/18/20 08:52 O2 Sat by Pulse Oximetry (%) 99 05/18/20 06:28 Laboratory Last Values WBC 7.3 K/mm3 (4.0-10.0) 05/18/20 08:00 RBC 4.17 M/mm3 (4.00-5.60) 05/18/20 08:00 Hgb 13.2 GM/dL (11.7-16.9) 05/18/20 08:00 Hct 39.4 % (35.4-49) 05/18/20 08:00 MCV 94.6 fl (80-96) 05/18/20 08:00 MCH 31.5 pg (25.7-33.7) 05/18/20 08:00 MCHC 33.3 g/dl (32.0-35.9) 05/18/20 08:00 RDW 15.7 % (11.9-15.9) 05/18/20 08:00 Plt Count 304 K/MM3 (134-434) D 05/18/20 08:00 MPV 7.5 fl (7.5-11.1) 05/18/20 08:00 Sodium 138 mmol/L (136-145) 05/18/20 08:00 Potassium 4.1 mmol/L (3.5-5.1) 05/18/20 08:00 Chloride 103 mmol/L (98-107) 05/18/20 08:00 Carbon Dioxide 27 mmol/L (21-32) 05/18/20 08:00 Anion Gap 8 MMOL/L (8-16) 05/18/20 08:00 BUN 19.7 mg/dL (7-18) H 05/18/20 08:00 Creatinine 0.8 mg/dL (0.55-1.3) 05/18/20 08:00 Est GFR (CKD-EPI)AfAm 113.33 05/18/20 08:00 Est GFR (CKD-EPI)NonAf 97.78 05/18/20 08:00 Random Glucose 84 mg/dL (74-106) 05/18/20 08:00 Calcium 8.9 mg/dL (8.5-10.1) 05/18/20 08:00 Total Bilirubin 1.3 mg/dL (0.2-1) H 05/18/20 08:00 AST 24 U/L (15-37) 05/18/20 08:00 ALT 23 U/L (13-61) 05/18/20 08:00 Alkaline Phosphatase 107 U/L (45-117) 05/18/20 08:00 Total Protein 6.5 g/dl (6.4-8.2) 05/18/20 08:00 Albumin 3.3 g/dl (3.4-5.0) L 05/18/20 08:00 Assessment: 05/18/20 11:01 withdrawal symptom Plan: continue detox librium regimen,fall precaution,encourage oral fluid
[2020-05-18] MEDS ORDERED: QUEtiapine FUMARATE 100 MG TABLET (FP) PO SCH (22:00)
[2020-05-18] MEDS: THIAMINE HCL 100 MG TABLET (FP) PO SCH (22:17)
[2020-05-18] MEDS: MELATONIN 5 MG TABLETS PO SCH (22:19)
[2020-05-19] MEDS: CEPHALEXIN MONOHYDRATE 500 MG CAPSULE (UD) PO SCH ×2 (06:02→13:51)
[2020-05-19] MEDS: chlordiazePOXIDE 5 MG CAPSULE PO SCH ×2 (06:02→13:51)
[2020-05-19] MEDS: METHOCARBAMOL 500 MG TABLET PO PRN (06:04)
[2020-05-19] MEDS ORDERED: PERMETHRIN 5% TOPICAL CREAM 60 GM TUBE TP ONE (09:29)
[2020-05-19] MEDS: PRENATAL VITAMINS W/ FOLIC ACID TABLET (FP) PO SCH (10:47)
[2020-05-19] MEDS: NICOTINE 14 MG/24 HOURS TOPICAL PATCH TD SCH (10:47)
[2020-05-19] MEDS: CLOTRIMAZOLE 1% CREAM 15 GM TUBE TP SCH (10:47)
--- NOTE | 2020-05-19 10:51 | PN ---
S CIWA - CIWA Score Nausea/Vomitin-No Nausea/No Vomiting Muscle Tremors: 2 Anxiety: 2 Agitation: 2 Paroxysmal Sweats: 2 Orientation: 0-Oriented Tacttile Disturbances: 0-None Auditory Disturbances: 0-None Visual Disturbances: 0-None Headache: 0-None Present CIWA-Ar Total Score: 8 BHS Progress Note (SOAP) Subjective: I am homeless and i think i have scabies sweats itchy/dry skin interrupted sleep Objective: 05/19/20 10:46 Vital Signs Temperature 97.1 F L 05/19/20 09:10 Pulse Rate 84 05/19/20 09:10 Respiratory Rate 18 05/19/20 09:10 Blood Pressure 121/64 05/19/20 09:10 O2 Sat by Pulse Oximetry (%) 99 05/19/20 05:18 Laboratory Tests 05/18/20 05/18/20 05/18/20 08:00 08:00 08:00 WBC 7.3 RBC 4.17 Hgb 13.2 Hct 39.4 MCV 94.6 MCH 31.5 MCHC 33.3 RDW 15.7 Plt Count 304 D MPV 7.5 Sodium 138 Potassium 4.1 Chloride 103 Carbon Dioxide 27 Anion Gap 8 BUN 19.7 H Creatinine 0.8 Est GFR (CKD-EPI)AfAm 113.33 Est GFR (CKD-EPI)NonAf 97.78 Random Glucose 84 Calcium 8.9 Total Bilirubin 1.3 H AST 24 ALT 23 Alkaline Phosphatase 107 Total Protein 6.5 Albumin 3.3 L Syphilis Serology Non-reactive labs noted aaox3 ambulating no acute distress Assessment: 05/19/20 10:46 withdrawals skin assessed; dark plaque psoriasis noted to mid back. rash to skin noted. no scabies borrows noted however will order permiterin topical cream for preventative measures. Plan: continue detox permiterin lotion ordered. pt teaching to use of lotion and proper application and removal of lotion. pt understands. lidex cream ordered for mid back increase fluids
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
--- NOTE | 2020-05-19 13:40 | DS ---
[facility] Detox Discharge Summary Admission Date: 05/17/20 - History Present History: Alcohol Dependence, Cocaine Dependence - Physical Exam Results Vital Signs: Vital Signs Temperature 97.1 F L 05/19/20 09:10 Pulse Rate 84 05/19/20 09:10 Respiratory Rate 18 05/19/20 09:10 Blood Pressure 121/64 05/19/20 09:10 O2 Sat by Pulse Oximetry (%) 99 05/19/20 05:18 Pertinent Admission Physical Exam Findings: Vital Signs Temperature 97.1 F L 05/19/20 09:10 Pulse Rate 84 05/19/20 09:10 Respiratory Rate 18 05/19/20 09:10 Blood Pressure 121/64 05/19/20 09:10 O2 Sat by Pulse Oximetry (%) 99 05/19/20 05:18 Laboratory Tests 05/18/20 05/18/20 05/18/20 08:00 08:00 08:00 WBC 7.3 RBC 4.17 Hgb 13.2 Hct 39.4 MCV 94.6 MCH 31.5 MCHC 33.3 RDW 15.7 Plt Count 304 D MPV 7.5 Sodium 138 Potassium 4.1 Chloride 103 Carbon Dioxide 27 Anion Gap 8 BUN 19.7 H Creatinine 0.8 Est GFR (CKD-EPI)AfAm 113.33 Est GFR (CKD-EPI)NonAf 97.78 Random Glucose 84 Calcium 8.9 Total Bilirubin 1.3 H AST 24 ALT 23 Alkaline Phosphatase 107 Total Protein 6.5 Albumin 3.3 L Syphilis Serology Non-reactive aaox3 ambulating no acute distress pt signed out AMA. - Treatment Hospital Course: Rehab Referral Accepted - Medication Discharge Medications: Ambulatory Orders Cephalexin Monohydrate [Keflex -] 500 mg PO TID 05/17/20 - Diagnosis (1) Alcohol dependence with uncomplicated withdrawal Current Visit: Yes Status: Chronic (2) Alcohol-induced mood disorder Current Visit: Yes Status: Acute (3) Dermatitis Current Visit: Yes Status: Chronic (4) Dry skin Current Visit: Yes Status: Chronic (5) Homeless Current Visit: Yes Status: Chronic (6) Nicotine dependence Current Visit: Yes Status: Chronic Qualifiers: Nicotine product type: cigarettes Substance use status: uncomplicated Qualified Code(s): F17.210 - Nicotine dependence, cigarettes, uncomplicated (7) Osteoarthritis Current Visit: Yes Status: Chronic Qualifiers: Osteoarthritis location: hip Osteoarthritis type: unspecified Laterality: left Qualified Code(s): M16.12 - Unilateral primary osteoarthritis, left hip (8) Non-compliance Current Visit: Yes Status: Suspected (9) Substance induced mood disorder Current Visit: Yes Status: Suspected (10) Weight loss Current Visit: Yes Status: Suspected (11) Alcohol-induced sleep disorder Current Visit: No Status: Acute (12) Cocaine abuse Current Visit: No Status: Acute (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 (14) Scabies Current Visit: Yes Status: Acute (15) Acneiform rash Current Visit: No Status: Chronic (16) Anxiety and depression Current Visit: No Status: Chronic (17) Dermatosis Current Visit: No Status: Chronic (18) Deviated nasal septum Current Visit: No Status: Chronic (19) Schizophrenia Current Visit: No Status: Chronic (20) Delusional disorder Current Visit: No Status: Suspected (21) Psychiatric disorder Current Visit: No Status: Suspected (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
[2020-05-19] MEDS ORDERED: FLUOCINONIDE 0.05% CREAM (15 GM TUBE) TP SCH (14:00)
[2020-05-19 14:08] VITALS: BP 118/84; PULSE 77; TEMP 97.8
[2020-05-20] MEDS ORDERED: chlordiazePOXIDE HCL 10 MG CAPSULE PO PRN
[2020-05-20] MEDS ORDERED: chlordiazePOXIDE HCL 10 MG CAPSULE PO SCH (05:00)
[2020-05-21] MEDS ORDERED: chlordiazePOXIDE HCL 10 MG CAPSULE PO ONE (05:00)
== END 2020-05-19 14:03 | disposition left against medical advice (07) | DRG 770 ==
LOC: YASAS 19:15 → Y6N 21:53
PROVIDERS: ADMIT Allergy & Immunology; ATTEND Allergy & Immunology
PROC: HZ2ZZZZ Detoxification Services for Substance Abuse Treatment (ICD-10-PCS; principal; 2020-05-17)
DX: F10.230 Alcohol dependence with withdrawal, uncomplicated (principal); F14.20 Cocaine dependence, uncomplicated; F17.210 Nicotine dependence, cigarettes, uncomplicated; F10.282 Alcohol dependence with alcohol-induced sleep disorder; F10.24 Alcohol dependence with alcohol-induced mood disorder; F19.24 Other psychoactive substance dependence with psychoactive substance-induced mood disorder; F22 Delusional disorders; F20.9 Schizophrenia, unspecified; F41.8 Other specified anxiety disorders; F32.9 Major depressive disorder, single episode, unspecified; B86 Scabies; M16.12 Unilateral primary osteoarthritis, left hip; J34.2 Deviated nasal septum; L98.9 Disorder of the skin and subcutaneous tissue, unspecified; L30.9 Dermatitis, unspecified; R45.89 Other symptoms and signs involving emotional state; R63.4 Abnormal weight loss; Z68.1 Body mass index [BMI] 19.9 or less, adult; Z99.89 Dependence on other enabling machines and devices; Z59.0 Homelessness
CPT/HCPCS: 36415; 80053; 85027; 86780; U0003

== ENCOUNTER 2020-07-05 19:47 | Inpatient (IN) | payer OTHER ==
--- NOTE | 2020-07-05 23:20 | HP ---
CIWA Score Nausea/Vomitin (vomiting x 1) Muscle Tremors: 4-Moderate,w/Arms Extend Anxiety: 3 Agitation: 3 Paroxysmal Sweats: 2 Orientation: 0-Oriented Tacttile Disturbances: 0-None Auditory Disturbances: 0-None Visual Disturbances: 0-None Headache: 3-Moderate CIWA-Ar Total Score: 17 - Admission Criteria OASAS Guidelines: Admission for Medically Managed Detox: Requires at least one of the followin. CIWA greater than 12 2. Seizures within the past 24 hours 3. Delirium tremens within the past 24 hours 4. Hallucinations within the past 24 hours 5. Acute intervention needed for co occurring medical disorder 6. Acute intervention needed for co occurring psychiatric disorder 7. Severe withdrawal that cannot be handled at a lower level of care (continued vomiting, continued diarrhea, abnormal vital signs) requiring intravenous medication and/or fluids 8. Admitting History and Physical - Smoking History Smoking history: Current every day smoker Have you smoked in the past 12 months: Yes Aproximately how many cigarettes per day: 3 If you are a former smoker, when did you quit?: 2017 - Alcohol/Substance Use Hx Alcohol Use: Yes Admission ROS [facility] - [facility] Chief Complaint: Seeking admission to detox Allergies/Adverse Reactions: Allergies Allergy/AdvReac Type Severity Reaction Status Date / Time No Known Allergies Allergy Verified 07/05/20 23:50 History of Present Illness: 60 years old male with a long history of alcohol dependence and well known to the facility is seeking admission to detox. His last admission was for the period 05/17/2029- 05/19/2020 and he left [facility]. Patient reports that he will complete this admission. He drinks 2 pints of vodka daily. He has medical history osteoarthritis, acneiform rash, dry skin, dermatitis, psych history of schizophrenia, depression and denies suicidal ideation at this time. He is unemployed, lives with his sister and denies legal issues. He reports + eye op ener, blackouts and denies alcohol related seizures. Exam Limitations: No Limitations - Ebola screening Have you traveled outside of the country in the last 21 days: No Have you had contact with anyone from an Ebola affected area: No Have you been sick,other than usual withdrawal symptoms: No Do you have a fever: No - Review of Systems Constitutional: Chills, Malaise, Changes in sleep EENT: reports: No Symptoms Reported Respiratory: reports: No Symptoms reported Cardiac: reports: No Symptoms Reported GI: reports: Nausea, Poor Fluid Intake, Vomiting (x 1), Abdominal cramping : reports: No Symptoms Reported Musculoskeletal: reports: No Symptoms Reported Integumentary: reports: Dryness, Flushing Neuro: reports: Tremors Endocrine: reports: No Symptoms Reported Hematology: reports: No Symptoms Reported Psychiatric: reports: Orientated x3, Anxious, Depressed Other Systems: Reviewed and Negative Patient History - Patient Medical History Hx Anemia: No Hx Asthma: No Hx Chronic Obstructive Pulmonary Disease (COPD): No Hx Cancer: No Hx Cardiac Disorders: No Hx Congestive Heart Failure: No Hx Hypertension: No Hx Hypercholesterolemia: No Hx Pacemaker: No HX Cerebrovascular Accident: No Hx Seizures: No Hx Dementia: No Hx Diabetes: No Hx Gastrointestinal Disorders: No Hx Liver Disease: No Hx Genitourinary Disorders: No Hx Sexually Transmitted Disorders: No Hx Renal Disease (ESRD): No Hx Thyroid Disease: No Hx Human Immunodeficiency Virus (HIV): No Hx Hepatitis C: No Hx Depression: Yes Hx Suicide Attempt: No Hx Bipolar Disorder: No Hx Schizophrenia: Yes - Patient Surgical History Past Surgical History: Yes Hx Neurologic Surgery: No Hx Cataract Extraction: No Hx Cardiac Surgery: No Hx Lung Surgery: No Hx Abdominal Surgery: No Hx Appendectomy: No Hx Cholecystectomy: No Hx Genitourinary Surgery: No Hx Orthopedic Surgery: No Other Surgical History: KELOID REMOVAL FROM RIGHT SIDE OF FACE Anesthesia Reaction: No - PPD History Previous Implant?: Yes (PPD POSITIVE) Date: 02/12/20 Results: NEG CXR PPD to be Administered?: No - Reproductive History Patient is a Female of Child Bearing Age (11 -55 yrs old): No (Male) - Smoking Cessation Smoking history: Current every day smoker Have you smoked in the past 12 months: Yes Aproximately how many cigarettes per day: 3 Hx Chewing Tobacco Use: No Initiated information on smoking cessation: Yes 'Breaking Loose' booklet given: 07/05/20 - Substance & Tx. History Hx Alcohol Use: Yes Hx Substance Use: No Substance Use Type: Alcohol Hx Substance Use Treatment: Yes ([facility]) - Substances abused Alcohol Substance route: Oral Frequency: Daily Amount used: 2 PINT OF VODKA Age of first use: 22 Date of last use: 07/05/20 Admission Physical Exam [facility] - Physical General Appearance: Yes: Moderate Distress, Alcohol on Breath, Tremorous HEENTM: Yes: Within Normal Limits Respiratory: Yes: Normal Breath Sounds, No Respiratory Distress Neck: Yes: Within Normal Limits Cardiology: Yes: Within Normal Limits Abdominal: Yes: Normal Bowel Sounds Genitourinary: Yes: Within Normal Limits Back: Yes: Normal Inspection, Other (rash) Musculoskeletal: Yes: Within Normal Limits Extremities: Yes: Tremors Neurological: Yes: Within Normal Limits Integumentary: Yes: Rash Lymphatic: Yes: Within Normal Limits - Diagnostic (1) Acneiform rash Current Visit: Yes Status: Chronic (2) Alcohol dependence with uncomplicated withdrawal Current Visit: Yes Status: Acute (3) Dry skin Current Visit: Yes Status: Chronic (4) Nicotine dependence Current Visit: Yes Status: Chronic Qualifiers: Nicotine product type: cigarettes Substance use status: uncomplicated Qualified Code(s): F17.210 - Nicotine dependence, cigarettes, uncomplicated (5) Osteoarthritis Current Visit: Yes Status: Chronic Qualifiers: Osteoarthritis location: hip Osteoarthritis type: unspecified Laterality: left Qualified Code(s): M16.12 - Unilateral primary osteoarthritis, left hip (6) Schizophrenia Current Visit: Yes Status: Chronic (7) Depression Current Visit: Yes Status: Chronic Qualifiers: Depression Type: unspecified Qualified Code(s): F32.9 - Major depressive disorder, single episode, unspecified (8) Anxiety Current Visit: Yes Status: Chronic Cleared for Admission S - Detox or Rehab [facility] Level of Care: Medically Managed Detox Regimen/Protocol: Librium Breathalyzer - Breathalyzer Breathalyzer: 0.076 Urine Drug Screen - Test Device Lot number: [id number] Expiration date: 07/12/21 - Control Is test valid?: Yes - Results Drug screen NEGATIVE: Yes Urine drug screen results: BZO-Benzodiazepines Inpatient Rehab Admission - Rehab Decision to Admit Inpatient rehab admission?: No
[2020-07-05] MEDS ORDERED: MENTHOL/PHENOL 1 EACH UD MM PRN (23:44)
[2020-07-05] MEDS ORDERED: BISMUTH SUBSALICYLATE 524 MG/30 ML UD PO PRN (23:44)
[2020-07-05] MEDS ORDERED: ONDANSETRON *ODT* 4 MG TABLET SL PRN (23:44)
[2020-07-05] MEDS ORDERED: MAGNESIUM CITRATE 300 ML BOTTLE PO PRN (23:44)
[2020-07-05] MEDS ORDERED: MAG HYDROX/AL HYDROX/SIMETH 30 ML UNIT-DOSE CUP PO PRN (23:44)
[2020-07-05] MEDS ORDERED: MAGNESIUM HYDROX 2400MG/30ML ORAL SUSPENSION 30 ML CUP PO PRN (23:44)
[2020-07-05] MEDS ORDERED: ACETAMINOPHEN 325 MG TABLET (FP) PO PRN ×2 (23:44)
[2020-07-05] MEDS ORDERED: chlordiazePOXIDE HCL 25 MG CAPSULE PO PRN (23:44)
[2020-07-05] MEDS ORDERED: hydrOXYzine PAMOATE 25 MG CAPSULE (FP) PO PRN (23:44)
[2020-07-05] MEDS ORDERED: NICOTINE POLACRILEX 2 MG GUM BUC PRN (23:44)
[2020-07-06] MEDS: chlordiazePOXIDE HCL 25 MG CAPSULE PO SCH ×5 (00:47→22:47)
--- NOTE | 2020-07-06 10:19 | EKG ---
Test Reason : Blood Pressure : / mmHG Vent. Rate : 072 BPM Atrial Rate : 072 BPM P-R Int : 210 ms QRS Dur : 094 ms QT Int : 402 ms P-R-T Axes : 072 077 067 degrees QTc Int : 440 ms SINUS RHYTHM WITH 1ST DEGREE A-V BLOCK OTHERWISE NORMAL ECG WHEN COMPARED WITH ECG OF 13-FEB-2020 01:51, [place] INTERVAL HAS INCREASED T WAVE INVERSION NO LONGER EVIDENT IN ANTERIOR LEADS Confirmed by MD Chaka, Topher ([id number]) on 07/06/2020 10:18:57 AM Referred By: Keon Bunn Confirmed By:Topher Null MD
[2020-07-06] MEDS: NICOTINE 14 MG/24 HOURS TOPICAL PATCH TD SCH (10:22)
[2020-07-06] MEDS: PRENATAL VITAMINS W/ FOLIC ACID TABLET (FP) PO SCH (10:22)
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
[2020-07-06 10:45] LABS: HEMATOCRIT 40.4 % (35.4-49); HEMOGLOBIN 13.6 GM/dL (11.7-16.9); MCH 31.6 pg (25.7-33.7); MCHC 33.6 g/dl (32.0-35.9); MEAN CELL VOLUME 94.2 fl (80-96); MEAN PLT VOLUME 7.6 fl (7.5-11.1); PLATELET COUNT 238 K/MM3 (134-434); RBC 4.29 M/mm3 (4.00-5.60); RDW 15.9 % (11.9-15.9); WHITE BLOOD COUNT 6.1 K/mm3 (4.0-10.0)
[2020-07-06 10:53] LABS: ALBUMIN 3.6 g/dl (3.4-5.0); BILIRUBIN,TOTAL 0.8 mg/dL (0.2-1); BLOOD UREA NITROGEN 15.9 mg/dL (7-18); CALCIUM 8.9 mg/dL (8.5-10.1); CREATININE 0.8 mg/dL (0.55-1.3); POTASSIUM 3.6 mmol/L (3.5-5.1); TOT PROT 6.9 g/dl (6.4-8.2)
--- NOTE | 2020-07-06 11:32 | PN ---
S CIWA - CIWA Score Nausea/Vomitin-Mild Nausea/No Vomiting Muscle Tremors: 3 Anxiety: 4-Mod. Anxious/Guarded Agitation: 2 Paroxysmal Sweats: No Perspiration Orientation: 0-Oriented Tacttile Disturbances: 1-Very Mild Itch/Numbness Auditory Disturbances: 0-None Visual Disturbances: 1-Very Mild Sensitivity Headache: 0-None Present CIWA-Ar Total Score: 12 BHS Progress Note (SOAP) Subjective: 60 years old male admitted on 07/05/20 for alcohol withdrawal sx management treating with librium detox regiment ate breakfast in room feels tired resting in bed ambulating from bed to bathroom slow steady physician instruction for cane Objective: 07/06/20 11:33 Vital Signs - 24 hr 07/05/20 07/06/20 07/06/20 23:38 00:31 06:31 Temperature 98.8 F 96.9 F L 98.4 F Pulse Rate 81 85 70 Respiratory 20 18 18 Rate Blood Pressure 115/75 143/98 116/73 O2 Sat by Pulse 97 97 Oximetry (%) 07/06/20 09:02 Temperature 97.5 F L Pulse Rate 71 Respiratory 20 Rate Blood Pressure 127/80 O2 Sat by Pulse 97 Oximetry (%) Laboratory Tests 07/06/20 07/06/20 07/06/20 08:30 08:30 08:30 WBC 6.1 RBC 4.29 Hgb 13.6 Hct 40.4 MCV 94.2 MCH 31.6 MCHC 33.6 RDW 15.9 Plt Count 238 D MPV 7.6 Sodium 141 Potassium 3.6 Chloride 103 Carbon Dioxide 29 Anion Gap 9 BUN 15.9 Creatinine 0.8 Est GFR (CKD-EPI)AfAm 113.33 Est GFR (CKD-EPI)NonAf 97.78 Random Glucose 71 L Calcium 8.9 Total Bilirubin 0.8 AST 34 ALT 28 Alkaline Phosphatase 100 Total Protein 6.9 Albumin 3.6 Syphilis Serology Non-reactive 07/06/20 11:34 covid pending Assessment: 07/06/20 11:34 alcohol withdrawal Plan: librium regiment
[2020-07-06] MEDS: IBUPROFEN 400 MG TABLET (FP) PO PRN ×2 (14:17→23:10)
[2020-07-06] MEDS ORDERED: PERMETHRIN 5% TOPICAL CREAM 60 GM TUBE TP ONE (19:00)
[2020-07-06] MEDS: THIAMINE HCL 100 MG TABLET (FP) PO SCH (22:47)
[2020-07-06] MEDS: MELATONIN 5 MG TABLETS PO SCH (22:47)
[2020-07-06] MEDS: QUEtiapine FUMARATE 100 MG TABLET (FP) PO SCH (22:47)
[2020-07-07] MEDS: chlordiazePOXIDE HCL 25 MG CAPSULE PO SCH ×4 (07:18→22:16)
[2020-07-07] MEDS: PRENATAL VITAMINS W/ FOLIC ACID TABLET (FP) PO SCH (10:41)
[2020-07-07] MEDS: NICOTINE 14 MG/24 HOURS TOPICAL PATCH TD SCH (10:42)
--- NOTE | 2020-07-07 10:46 | PN ---
S CIWA - CIWA Score Nausea/Vomitin-Mild Nausea/No Vomiting Muscle Tremors: 2 Anxiety: 1-Mildly Anxious Agitation: 2 Paroxysmal Sweats: 1-Minimal Palms Moist Orientation: 0-Oriented Tacttile Disturbances: 1-Very Mild Itch/Numbness Auditory Disturbances: 0-None Visual Disturbances: 0-None Headache: 0-None Present CIWA-Ar Total Score: 8 BHS Progress Note (SOAP) Subjective: 60 years old male was admitted on 07/05/20 for alcohol withdrawal sx management treating with librium detox regiment ambulating with cane from bed to bathroom slow steady ate breakfast in room resting in bed limited conversation with staff Objective: 07/07/20 10:44 Vital Signs - 24 hr 07/06/20 07/06/20 07/06/20 12:40 16:55 20:57 Temperature 97.1 F L 97.8 F 98.4 F Pulse Rate 70 76 65 Respiratory 18 18 18 Rate Blood Pressure 104/69 122/85 112/82 O2 Sat by Pulse 96 97 Oximetry (%) 07/07/20 06:22 Temperature 97.0 F L Pulse Rate 64 Respiratory 20 Rate Blood Pressure 109/70 O2 Sat by Pulse 98 Oximetry (%) Laboratory Tests 07/06/20 07/06/20 07/06/20 08:30 08:30 08:30 WBC 6.1 RBC 4.29 Hgb 13.6 Hct 40.4 MCV 94.2 MCH 31.6 MCHC 33.6 RDW 15.9 Plt Count 238 D MPV 7.6 Sodium 141 Potassium 3.6 Chloride 103 Carbon Dioxide 29 Anion Gap 9 BUN 15.9 Creatinine 0.8 Est GFR (CKD-EPI)AfAm 113.33 Est GFR (CKD-EPI)NonAf 97.78 Random Glucose 71 L Calcium 8.9 Total Bilirubin 0.8 AST 34 ALT 28 Alkaline Phosphatase 100 Total Protein 6.9 Albumin 3.6 Syphilis Serology Non-reactive lab noted Assessment: 07/07/20 10:46 alcohol withdrawal Plan: librium regiment
[2020-07-07] MEDS: IBUPROFEN 400 MG TABLET (FP) PO PRN (15:01)
[2020-07-07] MEDS: METHOCARBAMOL 500 MG TABLET PO PRN (15:01)
[2020-07-07] MEDS ORDERED: diphenhydrAMINE HCL 50 MG CAPSULE PO ONE (15:30)
[2020-07-07] MEDS ORDERED: diphenhydrAMINE HCL 25 MG CAPSULE (FP) PO ONE ×2 (15:37→18:06)
--- NOTE | 2020-07-07 18:08 | PN ---
BHS Progress Note Note: pt w/ c/o pruritus , s/p tx w/ Elimite . O : pt is delusional , difficult to re-direct . generalized maculopapular rash lower trunk and bilateral anterior / posterior thighs Vital Signs - 24 hr 07/06/20 07/07/20 07/07/20 20:57 06:22 10:50 Temperature 98.4 F 97.0 F L 97.1 F L Pulse Rate 65 64 67 Respiratory 18 20 18 Rate Blood Pressure 112/82 109/70 121/80 O2 Sat by Pulse 97 98 Oximetry (%) 07/07/20 07/07/20 13:00 16:35 Temperature 97.1 F L 97.5 F L Pulse Rate 69 62 Respiratory 18 18 Rate Blood Pressure 118/79 118/83 O2 Sat by Pulse 97 Oximetry (%) P : benadryl 50 mg x once. Continue Keflex bid x 5 days . Pt agreeabe w/ POC .
[2020-07-07] MEDS ORDERED: CEPHALEXIN MONOHYDRATE 500 MG CAPSULE (UD) PO SCH (22:00)
[2020-07-07] MEDS: QUEtiapine FUMARATE 100 MG TABLET (FP) PO SCH (22:16)
[2020-07-07] MEDS: THIAMINE HCL 100 MG TABLET (FP) PO SCH (22:17)
[2020-07-07] MEDS: MELATONIN 5 MG TABLETS PO SCH (22:17)
[2020-07-08] MEDS ORDERED: chlordiazePOXIDE HCL 10 MG CAPSULE PO PRN
[2020-07-08] MEDS ORDERED: chlordiazePOXIDE HCL 10 MG CAPSULE PO SCH (05:00)
[2020-07-08] MEDS: IBUPROFEN 400 MG TABLET (FP) PO PRN (05:06)
[2020-07-08] MEDS: METHOCARBAMOL 500 MG TABLET PO PRN (05:07)
--- NOTE | 2020-07-08 08:57 | DS ---
[facility] Detox Discharge Summary Admission Date: 07/05/20 Discharge Date: 07/08/20 - History Present History: Alcohol Dependence Additional Comments: 60 years old male was admitted on 07/05/20 for alcohol withdrawal sx management treated with librium detox regiment seen by psychiatrist sophie kimble mr murphy prefers to leave the detox today to go to his dermatitis for his chronic itchy skin strong recommend mr murphy ambulating with cane at all time General Appearance: Yes: no Distress, no Alcohol on Breath, mild Tremorous HEENTM: Yes: Within Normal Limits Respiratory: Yes: Normal Breath Sounds, No Respiratory Distress Neck: Yes: Within Normal Limits Cardiology: Yes: Within Normal Limits Abdominal: Yes: Normal Bowel Sounds Genitourinary: Yes: Within Normal Limits Back: Yes: Normal Inspection, Other (rash) Musculoskeletal: Yes: Within Normal Limits Extremities: Yes: Tremors Neurological: Yes: Within Normal Limits Integumentary: Yes: Rash neck trunk and extremities hyperpigmentation lesion multiple Lymphatic: Yes: Within Normal Limits Pertinent Past History: time for discharge 49 minutes treatment team met with mr murphy to discuss benefits of librium regiment completion 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 mr murphy is alert oriented x 3 goal-directed to care for his chronic skin condition mr murphy prefers to go to [facility] for alcohol misuse recovery - Physical Exam Results Vital Signs: Vital Signs Temperature 97.0 F L 07/08/20 07:41 Pulse Rate 57 L 07/08/20 07:41 Respiratory Rate 16 07/08/20 07:41 Blood Pressure 131/73 07/08/20 07:41 O2 Sat by Pulse Oximetry (%) 97 07/08/20 07:41 Pertinent Admission Physical Exam Findings: alcohol withdrawal Laboratory Tests 07/06/20 07/06/20 07/06/20 00:10 08:30 08:30 WBC 6.1 RBC 4.29 Hgb 13.6 Hct 40.4 MCV 94.2 MCH 31.6 MCHC 33.6 RDW 15.9 Plt Count 238 D MPV 7.6 Sodium Potassium Chloride Carbon Dioxide Anion Gap BUN Creatinine Est GFR (CKD-EPI)AfAm Est GFR (CKD-EPI)NonAf Random Glucose Calcium Total Bilirubin AST ALT Alkaline Phosphatase Total Protein Albumin Syphilis Serology Non-reactive COVID-19 ([facility]) Not detected 07/06/20 08:30 WBC RBC Hgb Hct MCV MCH MCHC RDW Plt Count MPV Sodium 141 Potassium 3.6 Chloride 103 Carbon Dioxide 29 Anion Gap 9 BUN 15.9 Creatinine 0.8 Est GFR (CKD-EPI)AfAm 113.33 Est GFR (CKD-EPI)NonAf 97.78 Random Glucose 71 L Calcium 8.9 Total Bilirubin 0.8 AST 34 ALT 28 Alkaline Phosphatase 100 Total Protein 6.9 Albumin 3.6 Syphilis Serology COVID-19 ([facility]) lab noted - Treatment Hospital Course: Detox Protocol Followed, Detoxed Safely, Responded well, Discharged Condition Good, Rehab Referral Accepted Patient has Accepted a Rehab Referral to: [facility] - Medication Discharge Medications: Ambulatory Orders Cephalexin Monohydrate [Keflex -] 500 mg PO TID #17 cap 05/19/20 - Diagnosis (1) Chronic contact dermatitis Status: Chronic (2) Alcohol dependence with uncomplicated withdrawal Status: Acute (3) Nicotine dependence Status: Acute Qualifiers: Nicotine product type: cigarettes Substance use status: in withdrawal Qualified Code(s): F17.213 - Nicotine dependence, cigarettes, with withdrawal (4) Substance induced mood disorder Status: Suspected (5) Weight loss Status: Chronic - AMA Did Patient Leave Against Medical Advice: No CIWA Score - CIWA Score Nausea/Vomitin-No Nausea/No Vomiting Muscle Tremors: None Anxiety: 1-Mildly Anxious Agitation: 1-Slight > Activity Paroxysmal Sweats: No Perspiration Orientation: 0-Oriented Tacttile Disturbances: 1-Very Mild Itch/Numbness Auditory Disturbances: 0-None Visual Disturbances: 0-None Headache: 0-None Present CIWA-Ar Total Score: 3
[2020-07-08 09:03] VITALS: BP 128/86; PULSE 75; TEMP 97.5
[2020-07-09] MEDS ORDERED: chlordiazePOXIDE HCL 10 MG CAPSULE PO SCH (05:00)
--- NOTE | 2020-07-09 14:48 | PN ---
S Progress Note Note: Psychiatry Attending's note : Script for seroquel 100 mg po hs. 30-day supply. Sent electronically to : [facility] [address] [place] [address]
[2020-07-09] MEDS ORDERED: QUEtiapine FUMARATE 100 MG TABLET (FP) PO SCH (22:00)
[2020-07-10] MEDS ORDERED: chlordiazePOXIDE HCL 10 MG CAPSULE PO ONE (05:00)
== END 2020-07-08 09:24 | disposition home or self-care (01) | DRG 775 ==
LOC: YASAS 19:47 → Y3N 23:48
PROVIDERS: ADMIT Allergy & Immunology; ATTEND Allergy & Immunology
PROC: HZ2ZZZZ Detoxification Services for Substance Abuse Treatment (ICD-10-PCS; principal; 2020-07-05)
DX: F10.230 Alcohol dependence with withdrawal, uncomplicated (principal); F17.213 Nicotine dependence, cigarettes, with withdrawal; F19.24 Other psychoactive substance dependence with psychoactive substance-induced mood disorder; F20.9 Schizophrenia, unspecified; F41.9 Anxiety disorder, unspecified; F32.9 Major depressive disorder, single episode, unspecified; L85.3 Xerosis cutis; L25.9 Unspecified contact dermatitis, unspecified cause; L29.8 Other pruritus; M19.90 Unspecified osteoarthritis, unspecified site; R63.4 Abnormal weight loss; Z68.21 Body mass index [BMI] 21.0-21.9, adult; Z99.89 Dependence on other enabling machines and devices; Z91.19 Patient's noncompliance with other medical treatment and regimen
CPT/HCPCS: 36415; 80053; 85027; 86780; 93005; 93010; U0003

== ENCOUNTER 2020-10-14 18:32 | Inpatient (IN) | payer OTHER ==
[2020-10-14 19:08] VITALS: BMI 20.2
[2020-10-14] MEDS ORDERED: NICOTINE POLACRILEX 2 MG GUM BUC PRN (20:00)
[2020-10-14] MEDS ORDERED: MENTHOL/PHENOL 1 EACH UD MM PRN (20:00)
[2020-10-14] MEDS ORDERED: ACETAMINOPHEN 325 MG TABLET (FP) PO PRN ×2 (20:00)
[2020-10-14] MEDS ORDERED: ONDANSETRON *ODT* 4 MG TABLET SL PRN (20:00)
[2020-10-14] MEDS ORDERED: BISMUTH SUBSALICYLATE 524 MG/30 ML UD PO PRN (20:00)
[2020-10-14] MEDS ORDERED: chlordiazePOXIDE HCL 25 MG CAPSULE PO PRN (20:00)
[2020-10-14] MEDS ORDERED: METHOCARBAMOL 500 MG TABLET PO PRN (20:00)
[2020-10-14] MEDS ORDERED: MAG HYDROX/AL HYDROX/SIMETH 30 ML UNIT-DOSE CUP PO PRN (20:00)
[2020-10-14] MEDS ORDERED: MAGNESIUM HYDROX 2400MG/30ML ORAL SUSPENSION 30 ML CUP PO PRN (20:00)
[2020-10-14] MEDS ORDERED: MAGNESIUM CITRATE 300 ML BOTTLE PO PRN (20:00)
[2020-10-14] MEDS: THIAMINE HCL 100 MG TABLET (FP) PO SCH (21:55)
[2020-10-14] MEDS: MELATONIN 5 MG TABLETS PO SCH (21:55)
[2020-10-14] MEDS: hydrOXYzine PAMOATE 25 MG CAPSULE (FP) PO SCH (21:55)
[2020-10-14] MEDS: chlordiazePOXIDE HCL 25 MG CAPSULE PO SCH (22:01)
[2020-10-15] MEDS: hydrOXYzine PAMOATE 25 MG CAPSULE (FP) PO SCH ×5 (06:33→22:30)
[2020-10-15] MEDS: chlordiazePOXIDE HCL 25 MG CAPSULE PO SCH ×4 (06:33→22:31)
[2020-10-15 10:32] LABS: HEMATOCRIT 37.3 % (35.4-49); HEMOGLOBIN 12.5 GM/dL (11.7-16.9); MCH 31.4 pg (25.7-33.7); MCHC 33.5 g/dl (32.0-35.9); MEAN CELL VOLUME 93.9 fl (80-96); MEAN PLT VOLUME 7.9 fl (7.5-11.1); PLATELET COUNT 191 K/MM3 (134-434); RBC 3.97 M/mm3 (4.00-5.60); RDW 15.3 % (11.9-15.9); WHITE BLOOD COUNT 5.4 K/mm3 (4.0-10.0)
[2020-10-15 10:34] LABS: POTASSIUM 4.4 mmol/L (3.5-5.1)
[2020-10-15 10:36] LABS: CALCIUM 8.3 mg/dL (8.5-10.1)
[2020-10-15 10:37] LABS: ALBUMIN 3.1 g/dl (3.4-5.0); BLOOD UREA NITROGEN 19.2 mg/dL (7-18)
[2020-10-15 10:40] LABS: CREATININE 0.7 mg/dL (0.55-1.3)
[2020-10-15 10:42] LABS: BILIRUBIN,TOTAL 0.6 mg/dL (0.2-1); TOT PROT 5.9 g/dl (6.4-8.2)
[2020-10-15] MEDS: PRENATAL VITAMINS W/ FOLIC ACID TABLET (FP) PO SCH (10:53)
[2020-10-15] MEDS: IBUPROFEN 400 MG TABLET (FP) PO PRN (10:53)
[2020-10-15] MEDS: NICOTINE 7 MG/24 HOURS TOPICAL PATCH TD SCH (10:53)
[2020-10-15] MEDS: MELATONIN 5 MG TABLETS PO SCH (22:30)
[2020-10-15] MEDS: THIAMINE HCL 100 MG TABLET (FP) PO SCH (22:31)
[2020-10-16] MEDS: chlordiazePOXIDE HCL 25 MG CAPSULE PO SCH ×2 (06:13→11:03)
[2020-10-16] MEDS: hydrOXYzine PAMOATE 25 MG CAPSULE (FP) PO SCH ×2 (06:13→11:02)
[2020-10-16 08:59] VITALS: BP 111/77; PULSE 78; TEMP 98.2
[2020-10-16] MEDS: IBUPROFEN 400 MG TABLET (FP) PO PRN (10:52)
[2020-10-16] MEDS: NICOTINE 7 MG/24 HOURS TOPICAL PATCH TD SCH (11:02)
[2020-10-16] MEDS: PRENATAL VITAMINS W/ FOLIC ACID TABLET (FP) PO SCH (11:02)
[2020-10-16] MEDS ORDERED: FLU VACCINE (FLULAVAL) PF 60 MCG/0.5 ML SYRINGE 2020-2021 IM ONE (12:00)
[2020-10-17] MEDS ORDERED: chlordiazePOXIDE HCL 10 MG CAPSULE PO PRN
[2020-10-17] MEDS ORDERED: chlordiazePOXIDE HCL 10 MG CAPSULE PO SCH (05:00)
[2020-10-18] MEDS ORDERED: chlordiazePOXIDE HCL 10 MG CAPSULE PO SCH (05:00)
[2020-10-19] MEDS ORDERED: chlordiazePOXIDE HCL 10 MG CAPSULE PO ONE (05:00)
== END 2020-10-16 11:11 | disposition left against medical advice (07) | DRG 770 ==
LOC: YASAS 18:32 → Y3N 21:19
PROVIDERS: ADMIT Allergy & Immunology; ATTEND Allergy & Immunology
PROC: HZ2ZZZZ Detoxification Services for Substance Abuse Treatment (ICD-10-PCS; principal; 2020-10-14)
DX: F10.230 Alcohol dependence with withdrawal, uncomplicated (principal); F10.220 Alcohol dependence with intoxication, uncomplicated; F14.10 Cocaine abuse, uncomplicated; F17.213 Nicotine dependence, cigarettes, with withdrawal; L98.8 Other specified disorders of the skin and subcutaneous tissue; M16.12 Unilateral primary osteoarthritis, left hip; M25.562 Pain in left knee; G89.29 Other chronic pain; Z59.0 Homelessness
CPT/HCPCS: 36415; 80053; 85027; 86780; C9803; U0003